=== PATIENT | female | born 1970 | race Caucasian/White ===

== ENCOUNTER → 2016-07-20 | Outpatient (CLI) | payer BC ==
[2016-07-20 15:30] LABS: URINE APPEARANCE CLEAR (CLEAR); URINE BILIRUBIN NEG (NEG); URINE COLOR YELLOW; URINE NITRITE NEG (NEG); URINE SPECIFIC GRAVITY 1.025 (1.000-1.030); UROBILINOGEN NEG (NEG); ZZUR CULT IF INDIC CLEAN CATCH NO
[2016-07-20 15:33] LABS: MANUAL MICROSCOPIC REQUIRED? NO; REVIEW REQ? NO
[2016-07-20 15:37] LABS: URINE TOTAL PROTEIN < 5.0 mg/dl (0-11.9)
== END | disposition home or self-care (01) ==
LOC: C.LAB1850 13:57
PROVIDERS: ATTEND Internal Medicine Nephrology
DX: I10 Essential (primary) hypertension (principal); Z90.5 Acquired absence of kidney

== ENCOUNTER → 2016-12-12 | Outpatient (CLI) | payer BC ==
[2016-12-12 13:04] LABS: ESTIMATED AVERAGE GLUCOSE 197 mg/dl; HA1C FLAG Normal (Normal)
[2016-12-12 13:25] LABS: CALCIUM 9.4 mg/dl (8.5-10.1)
[2016-12-12 13:26] LABS: BLOOD UREA NITROGEN 16 mg/dl (7-18); BUN/CREATININE RATIO 14.5 (10-20); CARBON DIOXIDE 27 mmol/L (21-32); CHLORIDE 102 mmol/L (98-107); CHOLESTEROL 132 mg/dl (0-200); GLUCOSE 137 mg/dl (70-99); SODIUM 137 mmol/L (136-145); TRIGLYCERIDES 94 mg/dl (0-150); VERY LOW DENSITY LIPOPROT CALC 19 mg/dl
[2016-12-12 13:36] LABS: CHOLESTEROL/HDL RATIO 3.2; HDL CHOLESTEROL 41 mg/dl; LDL CHOLESTEROL CALCULATED 72 mg/dl
== END | disposition home or self-care (01) ==
LOC: C.LABPBG 10:27
PROVIDERS: ATTEND Family Medicine
DX: E11.9 Type 2 diabetes mellitus without complications (principal); E03.9 Hypothyroidism, unspecified

== ENCOUNTER → 2017-04-18 | Outpatient (CLI) | payer BC ==
[2017-04-18 12:44] LABS: URINE APPEARANCE CLEAR (CLEAR); URINE BILIRUBIN NEG (NEG); URINE COLOR YELLOW; URINE NITRITE NEG (NEG); URINE PH 6.5 (4.5-7.5); URINE SPECIFIC GRAVITY 1.012 (1.000-1.030); UROBILINOGEN NEG (NEG); ZZUR CULT IF INDIC CLEAN CATCH NO
[2017-04-18 12:47] LABS: URINE TOTAL PROTEIN < 5.0 mg/dl (0-11.9)
[2017-04-18 12:52] LABS: MANUAL MICROSCOPIC REQUIRED? NO; REVIEW REQ? NO
[2017-04-18 12:54] LABS: BLOOD UREA NITROGEN 10 mg/dl (7-18); BUN/CREATININE RATIO 12.3 (10-20); CALCIUM 9.2 mg/dl (8.5-10.1); CARBON DIOXIDE 27 mmol/L (21-32); CHLORIDE 108 mmol/L (98-107); CREATININE 0.83 mg/dl (0.60-1.20); GLUCOSE 107 mg/dl (70-99); MAGNESIUM 2.2 mg/dl (1.8-2.4); PHOSPHORUS 3.1 mg/dl (2.5-4.9); SODIUM 141 mmol/L (136-145)
== END | disposition home or self-care (01) ==
LOC: C.LABPBG 10:10
PROVIDERS: ATTEND Internal Medicine Nephrology
DX: E55.9 Vitamin D deficiency, unspecified (principal); Z90.5 Acquired absence of kidney

== ENCOUNTER 2020-02-11 06:43 | Observation (INO) ==
--- NOTE | 2020-01-10 13:36 | PAT Medication Instructions ---
Medication Instructions Date of Service January 10, 2020 Home Medications Medication Instructions Recorded alprazolam 0.5 mg tablet 0.5 mg PO BID PRN #30 tab 09/24/19 cyclobenzaprine 5 mg tablet 5 mg PO TID PRN alprazolam 0.5 mg tablet 0.5 mg PO BID PRN Vitamin B12 Injection 1 dose UD acyclovir 400 mg PO UD PRN calcium carbonate [Calcium 600] 600 mg PO DAILY multivitamin 1 cap PO DAILY DO NOT take the morning of surgery cyclobenzaprine 5 mg tablet 5 mg PO TID PRN Vitamin B12 Injection 1 dose UD calcium carbonate [Calcium 600] 600 mg PO DAILY multivitamin 1 cap PO DAILY Take morning of surgery With a small sip of water, OTHERWISE NOTHING TO EAT OR DRINK AFTER MIDNIGHT: alprazolam 0.5 mg tablet 0.5 mg PO BID PRN (if needed) acyclovir 400 mg PO UD PRN (if needed) Take evening before surgery cyclobenzaprine 5 mg tablet 5 mg PO TID PRN (if needed) alprazolam 0.5 mg tablet 0.5 mg PO BID PRN (if needed) acyclovir 400 mg PO UD PRN (if needed) Other Notes If you have any questions please call us at [phone] or [phone] or [phone] or [phone]
--- NOTE | 2020-01-13 12:17 | Anesthesiology Consultation ---
Date of Service January 13, 2020 Assessment & Plan (1) Encounter for pre-operative examination: Per PAT assessment on 01/12: Travel screen negative. No known COVID-19 positive contacts. No current COVID-19 related symptoms. Patient scheduled for preop protocol COVID-19 testing 02/05 ([facility] [place] Awaiting results. - Check [facility] AM DOS Chart Review Chart Review: Acceptable Risk for Surgery (pending surgeon-ordered PCP clearance scheduled 01/15 (Dr. Archibald)) and Patient seen in Pre Admission Testing Teaching & Discussion Pre-Anesthesia Teaching/Discussion Notes: Instructed NPO after midnight before surgery,except medications with 15 cc of water. Medication instructions provided according to the PAT guidelines. History Surgery Operation Date: 02/11/20 13:40 Proposed Procedures p Left Total Knee Arthroplasty - Bruno Mesa DO Height/Weight Height: 5 ft 7 in Weight: 111.2 kg Allergies Allergy/AdvReac Type Severity Reaction Status Date / Time CHOLESTATIN Allergy Unknown per Uncoded 01/13/20 12:15 records, unknown reaction pine Allergy Unknown rash and Uncoded 01/13/20 12:15 congestion Medications Home Medications Medication Instructions Recorded Confirmed Last Taken cyclobenzaprine 5 mg tablet 5 mg PO TID PRN 01/22/19 01/09/20 Unknown alprazolam 0.5 mg tablet 0.5 mg PO BID PRN #30 tab 09/24/19 01/09/20 Unknown Vitamin B12 Injection 1 dose UD 01/09/20 01/09/20 Unknown acyclovir 400 mg PO UD PRN 01/09/20 01/09/20 Unknown calcium carbonate [Calcium 600] 600 mg PO DAILY 01/09/20 01/09/20 Unknown multivitamin 1 cap PO DAILY 01/09/20 01/09/20 Unknown Past Medical History Medical History Anxiety and depression Fibromyalgia History of diabetes mellitus diagnosed prior to gastric bypass, diet controlled since weight loss History of high blood pressure Obesity Osteoarthritis Solitary right kidney donated left kidney Exercise / Class Metabolic Activity II 4-5 Yardwork/Stairs/Walk up hill Past Family History Family History Sister Family history of diabetes mellitus Brother Family history of diabetes mellitus Sister Family history of diabetes mellitus Past Surgical History Surgical History History of 2 sections History of gastric bypass History of hysterectomy History of left nephrectomy History of placement of ear tubes History of right knee surgery History of surgery HYMENECTOMY S/P panniculectomy 04/26/19 Dr. Rickey Forde- Lilli abdominal panniculectomy Past Anesthesia History Other ("slow to wake") Sister- severe PONV Brother- "slow to wake" History of PONV No Hx of Motion Sickness and History of PONV (with previous c/s) Social History Smoking Status: Never smoker Do You Dip or Chew Tobacco: No Hx Alcohol Use: No Hx Substance Use: No substance use type: does not use Review of Systems Patient denies chest pain, shortness of breath, dyspnea on exertion, joint pain, reflux, cough, wheezing, palpitations. Physical Exam Vital Signs VITALS BP 135/85 P 78 TEMP 98.7 SP02 97%RA RESP 16 PHYSICAL Full neck and c-spine range of motion. Full TMJ range of motion. TMD 3 finger breaths Mallampati Score 1 Dentition: missing molars Lungs: clear throughout to auscultation Cardiac: regular rate and rhythm, no murmurs noted Spine: normal Carotid arteries: negative bruit Extremities: no edema Testing Laboratory Results 01/13/20 12:45 01/13/20 12:45 PT 10.1 Seconds (9.0-12.0) 01/13/20 12:45 INR 1.0 (0.9-1.1) 01/13/20 12:45 APTT 29.2 Seconds (21.0-31.0) 01/13/20 12:45 Hemoglobin A1c 6.1 % (4.5-5.6) H 01/13/20 12:45 Urine Color Yellow 01/13/20 12:45 Urine Appearance Clear (Clear) 01/13/20 12:45 Urine pH 7.5 (4.5-7.5) 01/13/20 12:45 Ur Specific [place] 1.016 (1.000-1.030) 01/13/20 12:45 Urine Protein Negative (Negative) 01/13/20 12:45 Urine Glucose (UA) Negative (Negative) 01/13/20 12:45 Urine Ketones Negative (Negative) 01/13/20 12:45 Urine Nitrite Negative (Negative) 01/13/20 12:45 Ur Leukocyte Esterase Negative (Negative) 01/13/20 12:45 Blood Type O Positive 01/13/20 12:45 Antibody Screen POSITIVE A 01/13/20 12:45 01/13/20 12:45 Urine Culture - Preliminary Urine,Clean Catch No growth - Less than 1,000 colonies/mL, Final report to follow. T&S with positive antibodies- per blood bank: aware and nothing further needed preoperatively* Electrocardiogram Date: 04/16/19 SR at 63bpm. Leftward axis. Chest X-Ray Date: 01/13/20 Findings: + NAD
--- NOTE | 2020-01-13 13:11 | XRay Report ---
XR chest Pre-admission PA/Lat CLINICAL HISTORY: Preoperative evaluation. COMPARISON STUDY: No previous studies for comparison. FINDINGS: Lung volumes are normal. Lungs are clear. There is no pneumothorax or pleural effusion. Car diac size is normal. Mediastinal contours are normal. There is no evidence for pulmonary edema. IMPRESSION: No acute cardiopulmonary findings. ACT 112: Negative or not required by law. Electronically signed by: Vernon Newton M.D. 01/13/2020 1:09 PM
[2020-01-13 13:59] LABS: Basophils # (auto) 0.01 K/uL (0-0.2); Basophils % (auto) 0.2 %; Hematocrit (blood only) 42.1 % (37-47); Hemoglobin 13.5 g/dL (12.0-16.0); Immature Granulocytes # (auto) 0.01 K/uL (0.00-0.02); Immature Granulocytes % (auto) 0.2 %; Lymphocytes # (auto) 1.42 K/uL (1.2-3.4); Lymphocytes % (auto) 31.8 %; Mean Corpuscular Hemoglobin 27.3 pg (25-34); Mean Corpuscular Hgb Conc 32.1 g/dL (32-36); Mean Corpuscular Volume 85.1 fL (80-100); Mean Platelet Volume 9.9 fL (7.4-10.4); Monocytes # (auto) 0.41 K/uL (0.11-0.59); Monocytes % (auto) 9.2 %; Neutrophils # (auto) 2.61 K/uL (1.4-6.5); Neutrophils % (auto) 58.6 %; Platelet Count 232 K/uL (130-400); RDW Standard Deviation 43.3 fL (36.4-46.3); Red Blood Count 4.95 M/uL (4.2-5.4); White Blood Count 4.46 K/uL (4.8-10.8)
[2020-01-13 14:08] LABS: Albumin Level 3.9 gm/dl (3.4-5.0); Calcium 9.1 mg/dl (8.5-10.1); Creatinine Clr Calc Pharmacy 89.2 ml/min; Est GFR (African American) 78.9; Est GFR (Non-African American) 68.1; Potassium 4.3 mmol/L (3.5-5.1)
[2020-01-13 14:12] LABS: Partial Thromboplastin Time 29.2 Seconds (21.0-31.0); Prothrombin Time 10.1 Seconds (9.0-12.0)
[2020-01-13 14:55] LABS: Appearance Urine Clear (Clear); Bilirubin Urine Negative (Negative); Blood Urine Negative (Negative); Color Urine Yellow; Glucose Urine UA Negative (Negative); Ketones Urine Negative (Negative); Leukocyte Esterase Urine Negative (Negative); Nitrite Urine Negative (Negative); Protein Urine Negative (Negative); Specific Gravity Urine 1.016 (1.000-1.030); Urobilinogen Urine Negative (Negative); pH Urine 7.5 (4.5-7.5)
[2020-01-14 05:37] LABS: Estimated Average Glucose 128 mg/dl; Hemoglobin A1C 6.1 % (4.5-5.6)
--- NOTE | 2020-01-15 10:53 | History & Physical Report ---
Date of Service January 15, 2020 date of surgery: 02-11-20 Procedure: Left Total knee replacement Assessment & Plan (1) Arthritis of knee, left: She presents with continued bilateral knee pain, left greater than right. 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 Risks and benefits of procedure discussed in detail today, patient would like to proceed with a block left total knee replacement at [facility] as scheduled. will obtain medical clearance prior to surgery as well as obtain PATs at [facility]. Will place on ASA 81mg po bid x 1 month post op, f/u 2 weeks post op for routine post-operative care and x-ray, sooner if having any problems. will make arrangements for HHPT at the time of discharge. At this point in time, has failed conservative measures and would like to proceed with surgical intervention. History of Present Illness Chief Complaint: left knee pain Primary Care Provider: Marcelle Archibald MD Ms Costello is a 49 year old female who complains of left knee pain, presents for pre-op evaluation prior to a left total knee replacement by dr Mesa at [facility] . She complains of pain, crepitus, decreased range of motion, instability and stiffness in her left knee. She states that the symptoms have been chronic and non-traumatic. She states that the symptoms occur constantly with intermittent worsening. Currently the patient states that the symptoms are moderate-severe. The pain is described as aching, sharp and throbbing. The symptoms occur continuously. The symptoms are aggravated by ascending stairs, daily activities, first steps while awake walking. Prior NSAIDs include IBU and Aleve. 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 Allergies Allergy/AdvReac Type Severity Reaction Status Date / Time CHOLESTATIN Allergy Unknown per Uncoded 01/13/20 12:15 records, unknown reaction pine Allergy Unknown rash and Uncoded 01/13/20 12:15 congestion Home Medications Home Medications Medication Instructions Recorded Confirmed Type cyclobenzaprine 5 mg tablet 5 mg PO TID PRN 01/22/19 01/09/20 History alprazolam 0.5 mg tablet 0.5 mg PO BID PRN #30 tab 09/24/19 01/09/20 Rx Vitamin B12 Injection 1 dose UD 01/09/20 01/09/20 History acyclovir 400 mg PO UD PRN 01/09/20 01/09/20 History calcium carbonate [Calcium 600] 600 mg PO DAILY 01/09/20 01/09/20 History multivitamin 1 cap PO DAILY 01/09/20 01/09/20 History Past Med/Surg History Medical History Anxiety and depression Fibromyalgia History of diabetes mellitus diagnosed prior to gastric bypass, diet controlled since weight loss History of high blood pressure Obesity Osteoarthritis Solitary right kidney donated left kidney Surgical History History of 2 sections History of gastric bypass History of hysterectomy History of left nephrectomy History of placement of ear tubes History of right knee surgery History of surgery HYMENECTOMY S/P panniculectomy 04/26/19 Dr. Rickey Reeder abdominal panniculectomy Family History Sister Family history of diabetes mellitus Brother Family history of diabetes mellitus Sister Family history of diabetes mellitus Social History Smoking Status: Never smoker Do You Dip or Chew Tobacco: No; Hx Alcohol Use: No Hx Substance Use: No Preferred Language: Kinyarwanda Communication Ability: Effective Emergency Services Professional Required: No Beliefs That Will Affect Care: None Current Living Situation: Spouse and Family Other Information That Helps Us Care for You: No Feels Safe at Home: Yes Review of Systems Review of Systems: All systems reviewed & are unremarkable except as noted in HPI & below Constitutional: no fever, no chills and no sweats Respiratory: no cough and no dyspnea Cardiovascular: no chest pain, no dyspnea and no orthopnea Gastrointestinal: no abdominal pain, no nausea and no vomiting Musculoskeletal: as per Subjective / HPI Physical Exam Physical Exam: HT: 5ft 7in WT: 111kg BP: 120/90 Constitutional: WD/WN, vitals as above no acute distress Respiratory: normal respiratory effort, lungs clear to auscultation no respiratory distress, no labored breathing and does not use accessory muscles Cardiovascular: RRR, no murmur, no edema Gastrointestinal (Abdomen): normal bowel sounds, soft, nontender, no hepatosplenomegaly Musculoskeletal: Knee: + knee abnormal to inspection (Left Knee- ), + effusion (+1 effusion), + limited ROM of knee (ROM 0/3/110), + knee ROM with crepitation, + joint line tenderness (medial joint line) and + Pollo's sign positive; no deformity, no skin erythema, no ecchymosis, no valgus laxity, no varus laxity, anterior drawer test negative, Kiara's sign negative and pivot shift test negative Results & Data Results & Data ([facility]) Laboratory Results Laboratory Results WBC 4.46 K/uL (4.8-10.8) L 01/13/20 12:45 RBC 4.95 M/uL (4.2-5.4) 01/13/20 12:45 Hgb 13.5 g/dL (12.0-16.0) 01/13/20 12:45 Hct 42.1 % (37-47) 01/13/20 12:45 MCV 85.1 fL (80-100) 01/13/20 12:45 MCH 27.3 pg (25-34) 01/13/20 12:45 MCHC 32.1 g/dL (32-36) 01/13/20 12:45 RDW Std Deviation 43.3 fL (36.4-46.3) 01/13/20 12:45 RDW Coeff of Gerson 14.0 % (11.5-14.5) 01/13/20 12:45 Plt Count 232 K/uL (130-400) 01/13/20 12:45 MPV 9.9 fL (7.4-10.4) 01/13/20 12:45 Immature Gran % (Auto) 0.2 % 01/13/20 12:45 Neut % (Auto) 58.6 % 01/13/20 12:45 Lymph % (Auto) 31.8 % 01/13/20 12:45 Mayes % (Auto) 9.2 % 01/13/20 12:45 Eos % (Auto) 0.0 % 01/13/20 12:45 Baso % (Auto) 0.2 % 01/13/20 12:45 Neut # (Auto) 2.61 K/uL (1.4-6.5) 01/13/20 12:45 Lymph # (Auto) 1.42 K/uL (1.2-3.4) 01/13/20 12:45 Mayes # (Auto) 0.41 K/uL (0.11-0.59) 01/13/20 12:45 Eos # (Auto) 0.00 K/uL (0-0.5) 01/13/20 12:45 Baso # (Auto) 0.01 K/uL (0-0.2) 01/13/20 12:45 Immature Gran # (Auto) 0.01 K/uL (0.00-0.02) 01/13/20 12:45 PT 10.1 Seconds (9.0-12.0) 01/13/20 12:45 INR 1.0 (0.9-1.1) 01/13/20 12:45 APTT 29.2 Seconds (21.0-31.0) 01/13/20 12:45 PTT Ratio 1.0 01/13/20 12:45 Sodium 140 mmol/L (136-145) 01/13/20 12:45 Potassium 4.3 mmol/L (3.5-5.1) 01/13/20 12:45 Chloride 108 mmol/L (98-107) H 01/13/20 12:45 Carbon Dioxide 26 mmol/L (21-32) 01/13/20 12:45 Anion Gap 6.0 (3-11) 01/13/20 12:45 BUN 14 mg/dl (7-18) 01/13/20 12:45 Creatinine 0.97 mg/dl (0.6-1.2) 01/13/20 12:45 Est Cr Clr Drug Dosing 89.2 ml/min 01/13/20 12:45 Est GFR ( Amer) 78.9 01/13/20 12:45 Est GFR (Non-Af Amer) 68.1 01/13/20 12:45 BUN/Creatinine Ratio 14.0 (10-20) 01/13/20 12:45 Glucose 87 mg/dl (70-99) 01/13/20 12:45 Estimat Average Glucose 128 mg/dl 01/13/20 12:45 Hemoglobin A1c 6.1 % (4.5-5.6) H 01/13/20 12:45 Calcium 9.1 mg/dl (8.5-10.1) 01/13/20 12:45 Albumin 3.9 gm/dl (3.4-5.0) 01/13/20 12:45 Urine Color Yellow 01/13/20 12:45 Urine Appearance Clear (Clear) 01/13/20 12:45 Urine pH 7.5 (4.5-7.5) 01/13/20 12:45 Ur Specific [place] 1.016 (1.000-1.030) 01/13/20 12:45 Urine Protein Negative (Negative) 01/13/20 12:45 Urine Glucose (UA) Negative (Negative) 01/13/20 12:45 Urine Ketones Negative (Negative) 01/13/20 12:45 Urine Blood Negative (Negative) 01/13/20 12:45 Urine Nitrite Negative (Negative) 01/13/20 12:45 Urine Bilirubin Negative (Negative) 01/13/20 12:45 Urine Urobilinogen Negative (Negative) 01/13/20 12:45 Ur Leukocyte Esterase Negative (Negative) 01/13/20 12:45 Blood Type O Positive 01/13/20 12:45 Antibody Screen POSITIVE A 01/13/20 12:45 Antibody Identification Anti-c 01/13/20 12:45 Antibody ID Comment 01/13/20 12:45 Antigen Identification c Antigen - NEGATIVE 01/13/20 12:45 Diagnostic Findings Left Knee X-ray: left knee series confirm advanced degenerative changes to the left knee, greatest medial compartments and patellofemoral joint, showing joint space narrowing, osteophyte formation and subchondral sclerosis. no acute bony pathology noted.
[~2020-02-11 06:43] MED LIST: ACETAMINOPHEN 500 MG TAB PO SCH; BUPIVACAINE 0.5 % 5 MG/1 ML PF 10ML VIAL ONE; CEFAZOLIN 2000MG 2,000 MG/15 ML SYR IV SCH; CeleBREX 200 MG CAP PO SCH; FAMOTIDINE 20 MG TAB PO SCH; GABAPENTIN 900 MG DOSE PO SCH; LR 500ML BOLUS, THEN 15ML/HR IV SCH; METOCLOPRAMIDE HCL 10 MG TABLET PO SCH; ROPIVACAINE 0.5% HCL/PF 150 MG, BUPIVACAINE 0.5% MPF 30 ML, EPINEPHrine 30MG/30ML (OR U... INSTIL SCH; TRANEXAMIC ACID 1,000 MG **IV Intra-op IV SCH; TRANEXAMIC ACID 1,000 MG **IV Pre-op IV SCH; dexAMETHasone 4 MG TAB PO SCH
[2020-02-11] MEDS ORDERED: BACITRACIN INJ 50,000 UNIT VIAL ONE (06:58)
[2020-02-11] MEDS ORDERED: ORTHO JOINT ANESTHETIC ONE (06:58)
--- NOTE | 2020-02-11 07:23 | History & Physical Bridge Note ---
Date of Service February 11, 2020 History & Physical Bridge Note I have examined the patient, reviewed the History & Physical and in the interval since the performance of the History & Physical I have noted the following changes of clinical significance: no changes noted
[2020-02-11] MEDS ORDERED: fentaNYL citrate 100 MCG/2 ML VIAL ONE (07:26)
[2020-02-11] MEDS ORDERED: MIDAZOLAM HCL 1 MG/ML 2ML VIAL ONE ×2 (07:26→08:43)
[2020-02-11] MEDS ORDERED: ATROPINE SULFATE 0.1 MG/ML 10ML SYR IV PRN (08:06)
[2020-02-11] MEDS ORDERED: fentaNYL citrate 100 MCG/2 ML VIAL IV PRN (08:06)
[2020-02-11] MEDS ORDERED: ePHEDrine sulfate 50 MG/ML AMP IV PRN (08:06)
[2020-02-11] MEDS ORDERED: ONDANSETRON INJ 2 MG/ML 2 ML VIAL IV PRN ×2 (08:06→12:05)
[2020-02-11] MEDS ORDERED: PROPOFOL IV EMULSION 10 MG/ML 20 ML VIAL IV ONE ×2 (08:46→10:05)
[2020-02-11] MEDS ORDERED: ONDANSETRON INJ 2 MG/ML 2 ML VIAL ONE (08:46)
[2020-02-11] MEDS ORDERED: LIDOCAINE HCL 2% 2 ML VIAL/AMP(20MG/ML) INFIL ONE (08:46)
--- NOTE | 2020-02-11 09:32 | Operative Report ---
Post Operative Report Pre & Post Diagnosis Operation Date: 02/11/20 08:35 Pre-Op Diagnosis: Unilateral Primary Osteoarthritis, Left Knee Post-Op Diagnosis: Unilateral Primary Osteoarthritis, Left Knee I identified the patient and participated in the time-out.: Yes Procedure Operation Date: 02/11/20 08:35 Actual Procedures p Left Total Knee Arthroplasty(Left) utilizing [employer] journey 2 patient matched total knee arthroplasty size 5 femur/4 tibia 11 polyethylene 32 oval patella- Bruno Mesa DO Surgeon Bruno Mesa DO Supervisor [employer] Edison ESCUDERO Estimated Blood Loss 5 Findings Consistent with Post-Op Diagnosis Patient presents with severe end-stage tricompartmental degenerative joint disease subchondral sclerosis marginal osteophytes subchondral cystic changes varus alignment with a 10 degree flexion contracture and a moderate to large effusion Specimens Bone and cartilage Drains Medium bore Hemovac Anesthesia Type MAC Spinal Regional Complications none Disposition Accompanied Patient To Recovery: No Disposition: Recovery Room Indications Patient presents with severe end-stage tricompartmental degenerative joint disease by her left knee she been no response to conservative management the above intraoperative findings no time surgery patient fell attempted conservative management clinic physical therapy anti-inflammatories relative rest activity modification corticosteroid injection Visco supplementation Description of Procedure After proper prepping and draping of the left lower extremity anterior midline incision was made over the region of the extensor extensor mechanism after meticulous hemostasis was obtained and maintained in subcutaneous tissues a medial parapatellar incision was made The patella was subluxed lateralward the medial lateral gutter were cleaned from any hypertrophic synovitis and scar tissue of the distal femoral block was placed and the distal femoral osteotomy cut was made subsequently the chamfers anterior and posterior osteotomy cuts were made utilizing the 4-in-1 block the tibia was subsequently subluxed ant eriorward medial and ateral meniscal remnants were excised in their entirety remnants of the anterior and posterior cruciate ligaments were excised in their entirety excellent exposure of the proximal tibia was obtained the tibial osteotomy guide was placed on the proximal tibial osteotomy cut was made once again the knee was irrigated with copious amounts of sterile saline solution the patella was subsequently everted lateralward thickened scar tissue around the patella was removed the patella was subsequently cut utilizing a freehand technique and was drilled prepared for final preparation and placement of patella socially flexion-extension gaps were checked and the equal and symmetric trials were placed to the appropriate femoral and tibial trials with poly-spacer being placed for equal flexion and extension gaps and full range of motion including extension to 0 and flexion to 140 the trial components after having been taken to recovery range of motion was subsequently removed meticulous hemostasis was obtained and maintained subsequently a knee block injection of joint cocktail including ropivacaine 0.5% 150 mg. Bupivacaine 0.5% epinephrine 1-200,030 mL's toradol 30 mg dexamethasone 4 mg ketamine 10 mg clonidine 100 micrograms normal saline solution 30 mg was infiltrated into the soft tissues of the posterior knee medial lateral gutters and periosteal synovium special at tention was paid to protect neurovascular structures at all times subsequently trial components having been removed the knee was irrigated with sterile saline solution. debris was removed the proximal tibia was subsequently prepared and was made ready for the placement of the tibial component tibial component was also cemented and tamped into position the femoral component was subsequently placed and cemented in the position the patellar component was subsequently cemented in position because hemostasis once again obtained and maintained wound having been thoroughly irrigated with debridement and debridement lavage was performed as well as a medial parapatellar incision closed with #1 Vicryl in interrupted fashion subcutaneous was closed with #2 Vicryl skin was closed with skin clips. PA-C was necessary for prepping and drapping as well as wound closure of deep fascia Sub cutaneous tissue and skin and was necessary for the case. A sterile compressive dressing was placed patient was taken to recovery in stable condition of report dictated by Moshe I attest to the content of the Intraoperative Record and any orders documented therein. Any exceptions are noted below. I attest to the content of the Intraoperative Record and any orders documented therein. Any exceptions are noted below.
--- NOTE | 2020-02-11 10:43 | XRay Report ---
XR knee LT 1 or 2V routine CLINICAL HISTORY: Postoperative evaluation. COMPARISON: None FINDINGS: Alignment of the total left knee arthroplasty is anatomic. There is no fracture or unexpec benton radiopaque foreign body. Surgical drains are in place. IMPRESSION: Expected findings following total left knee arthroplasty. ACT 112: Negative or not required by law. Electronically signed by: Vernon Newton M.D. 02/11/2020 10:42 AM
--- NOTE | 2020-02-11 10:53 | Anesthesiology Progress Note ---
Date of Service February 11, 2020 Anesthesia Post Procedure Vital Signs Vital Signs: Temp Pulse Pulse Resp BP Pulse Ox 02/11/20 10:45 85 16 155/87 H 96 02/11/20 10:35 88 14 152/91 H 98 02/11/20 10:25 90 16 138/83 94 02/11/20 10:18 98.2 F 96 H 16 137/77 96 02/11/20 08:13 71 18 158/96 H 98 02/11/20 07:33 98.6 F 71 20 137/89 97 Transfer of Care Handoff Completed per policy Notes Mental Status: alert / awake / arousable and participated in evaluation Patient Amnestic to Procedure: Yes Nausea / Vomiting: adequately controlled Pain: adequately controlled Airway Patency, RR, SpO2: stable & adequate BP & HR: stable & adequate Hydration State: stable & adequate Neuraxial Anesthesia: was administered and sensory block is resolving Anesthetic Complications: no major complications apparent and Pt Satisfied with anesthetic care
[2020-02-11] MEDS ORDERED: bisacodyL 10 MG SUPP PR PRN (12:05)
[2020-02-11] MEDS ORDERED: HYDROmorphone INJ 0.5 MG/0.5 ML SYR IV PRN (12:05)
[2020-02-11] MEDS ORDERED: ALPRAZolam 0.5 MG TABLET PO PRN (12:05)
[2020-02-11] MEDS ORDERED: NALOXONE HCL 0.4 MG/1 ML VIAL/CARP IV PRN (12:05)
[2020-02-11] MEDS ORDERED: MAGNESIUM HYDROXIDE SUSP 30 ML UDC PO PRN (12:05)
[2020-02-11] MEDS: ACETAMINOPHEN 500 MG TAB PO SCH ×2 (13:12→21:42)
[2020-02-11] MEDS: SODIUM CHLORIDE 0.9% 1000ML 1,000 ML IV SCH ×2 (13:12→21:41)
[2020-02-11] MEDS: OXYCODONE HCL IR 5 MG TAB (IMMEDIATE RELEASE) PO PRN ×2 (15:45→19:46)
[2020-02-11] MEDS: CEFAZOLIN 2000MG 2,000 MG/15 ML SYR IV SCH ×2 (15:51→23:42)
[2020-02-11] MEDS: FERROUS GLUCONATE 324 MG TAB PO SCH (18:45)
[2020-02-11] MEDS: DOCUSATE SODIUM 100 MG CAP PO SCH (21:41)
[2020-02-11] MEDS: ASPIRIN 81 MG ECTAB PO SCH (21:41)
[2020-02-11] MEDS: SENNA 8.6 MG TAB PO SCH (21:41)
[2020-02-12] MEDS: OXYCODONE HCL IR 5 MG TAB (IMMEDIATE RELEASE) PO PRN ×4 (00:02→19:40)
[2020-02-12 05:54] LABS: Hematocrit (blood only) 34.8 % (37-47); Hemoglobin 11.5 g/dL (12.0-16.0); Mean Corpuscular Hemoglobin 27.6 pg (25-34); Mean Corpuscular Volume 83.5 fL (80-100); Mean Platelet Volume 9.8 fL (7.4-10.4); Platelet Count 179 K/uL (130-400); RDW Coefficient of Variation 13.6 % (11.5-14.5); Red Blood Count 4.17 M/uL (4.2-5.4); White Blood Count 7.79 K/uL (4.8-10.8)
[2020-02-12 06:19] LABS: BUN Creatinine Ratio 12.3 (10-20); Calcium 7.9 mg/dl (8.5-10.1); Creatinine Clr Calc Pharmacy 105.8 ml/min; Est GFR (African American) 96.7; Est GFR (Non-African American) 83.4; Potassium 4.2 mmol/L (3.5-5.1)
[2020-02-12] MEDS: ACETAMINOPHEN 500 MG TAB PO SCH ×3 (06:25→22:17)
[2020-02-12] MEDS: ASPIRIN 81 MG ECTAB PO SCH ×2 (08:27→20:33)
[2020-02-12] MEDS: DOCUSATE SODIUM 100 MG CAP PO SCH ×2 (08:27→20:33)
[2020-02-12] MEDS: FERROUS GLUCONATE 324 MG TAB PO SCH ×2 (08:27→17:22)
[2020-02-12] MEDS: MULTIVITAMIN TAB PO SCH (08:27)
--- NOTE | 2020-02-12 12:56 | Orthopedic Progress Note ---
Date of Service February 12, 2020 Assessment & Plan (1) History of total left knee replacement: POD #1 s/p Left TKA pt/ot dvt proph with LILO/SCD/ASA plan for d/c home with HHPT will keep until tomorrow, episodes of N/V and increased pain. Admission and Anticipated Discharge Date Admission Date: February 11, 2020 Subjective POD #1 s/p Left TKA had some nausea with PT as well as 1 episode of vomiting Review of Systems Constitutional: no fever, no chills and no sweats Respiratory: no cough and no dyspnea Cardiovascular: no chest pain and no dyspnea Gastrointestinal: no abdominal pain Physical Exam Physical Exam: Vital Signs Temp 36.9 C 02/12/20 07:19 Pulse 75 02/12/20 07:19 Resp 16 02/12/20 07:19 BP 149/73 H 02/12/20 07:19 Pulse Ox 97 02/12/20 07:19 Intake & Output 02/11/20 02/12/20 02/12/20 18:59 06:59 18:59 Intake Total 1750 / 4681.666 2931.666 / 4681.66 6 Output Total 1305 / 3255 1950 / 3255 Balance 445 / 1426.666 981.666 / 1426.666 Weight 110 kg Intake: IV 700 / 2181.666 1481.666 / 2181.66 6 Lr 1,000 ml @ 15 mls/hr IV . 500 / 500 Q24H [facility] Rx#:[id number] Nss 1000ML 1,0 00 ml @ 100 mls/ 1481.666 / 1481.66 6 hr IV .Q10H [facility] Rx#:[id number] TRANEXAMIC ACI D / 0.7% NACL 1, 200 / 200 000 mg In 100 ml @ 600 mls/hr IV TODAY@0600 [facility] Rx#:[id number] IV Perioperative 800 / 800 Oral 250 / 1700 1450 / 1700 Output: Urine 1150 / 2750 1600 / 2750 Estimated Blood Loss 5 / 5 Drain Output 150 / 500 350 / 500 Left Knee 150 / 500 350 / 500 Other: # Unmeasured Voi ds 1 Constitutional: WD/WN, vitals as above no acute distress Musculoskeletal: Left Leg: NVDI, calf SNT, negative leyla sign. DP palpable, able to wiggle toes/ankle movement without difficulty. dressing clean dry and intact. Results & Data ([facility]) Vital Signs (Past 12 Hours) Vital Signs Temp Pulse Resp BP Pulse Ox 02/12/20 07:19 36.9 C 75 16 149/73 H 97 02/12/20 03:17 36.4 C L 72 16 138/83 96 Laboratory Results Laboratory Results WBC 7.79 K/uL (4.8-10.8) 02/12/20 05:21 RBC 4.17 M/uL (4.2-5.4) L 02/12/20 05:21 Hgb 11.5 g/dL (12.0-16.0) L 02/12/20 05:21 Hct 34.8 % (37-47) L 02/12/20 05:21 MCV 83.5 fL (80-100) 02/12/20 05:21 MCH 27.6 pg (25-34) 02/12/20 05:21 MCHC 33.0 g/dL (32-36) 02/12/20 05:21 RDW Std Deviation 41.0 fL (36.4-46.3) 02/12/20 05:21 RDW Coeff of Gerson 13.6 % (11.5-14.5) 02/12/20 05:21 Plt Count 179 K/uL (130-400) 02/12/20 05:21 MPV 9.8 fL (7.4-10.4) 02/12/20 05:21 Immature Gran % (Auto) 0.2 % 01/13/20 12:45 Neut % (Auto) 58.6 % 01/13/20 12:45 Lymph % (Auto) 31.8 % 01/13/20 12:45 [place] % (Auto) 9.2 % 01/13/20 12:45 Eos % (Auto) 0.0 % 01/13/20 12:45 Baso % (Auto) 0.2 % 01/13/20 12:45 Neut # (Auto) 2.61 K/uL (1.4-6.5) 01/13/20 12:45 Lymph # (Auto) 1.42 K/uL (1.2-3.4) 01/13/20 12:45 [place] # (Auto) 0.41 K/uL (0.11-0.59) 01/13/20 12:45 Eos # (Auto) 0.00 K/uL (0-0.5) 01/13/20 12:45 Baso # (Auto) 0.01 K/uL (0-0.2) 01/13/20 12:45 Immature Gran # (Auto) 0.01 K/uL (0.00-0.02) 01/13/20 12:45 PT 10.1 Seconds (9.0-12.0) 01/13/20 12:45 INR 1.0 (0.9-1.1) 01/13/20 12:45 APTT 29.2 Seconds (21.0-31.0) 01/13/20 12:45 PTT Ratio 1.0 01/13/20 12:45 Sodium 141 mmol/L (136-145) 02/12/20 05:21 Potassium 4.2 mmol/L (3.5-5.1) 02/12/20 05:21 Chloride 112 mmol/L (98-107) H 02/12/20 05:21 Carbon Dioxide 25 mmol/L (21-32) 02/12/20 05:21 Anion Gap 4.0 (3-11) 02/12/20 05:21 BUN 10 mg/dl (7-18) 02/12/20 05:21 Creatinine 0.82 mg/dl (0.6-1.2) 02/12/20 05:21 Est Cr Clr Drug Dosing 105.8 ml/min 02/12/20 05:21 Est GFR ( Amer) 96.7 02/12/20 05:21 Est GFR (Non-Af Amer) 83.4 02/12/20 05:21 BUN/Creatinine Ratio 12.3 (10-20) 02/12/20 05:21 Glucose 107 mg/dl (70-99) H 02/12/20 05:21 POC Glucose 99 mg/dl (70-99) 02/11/20 07:15 Estimat Average Glucose 128 mg/dl 01/13/20 12:45 Hemoglobin A1c 6.1 % (4.5-5.6) H 01/13/20 12:45 Calcium 7.9 mg/dl (8.5-10.1) L 02/12/20 05:21 Albumin 3.9 gm/dl (3.4-5.0) 01/13/20 12:45 Urine Color Yellow 01/13/20 12:45 Urine Appearance Clear (Clear) 01/13/20 12:45 Urine pH 7.5 (4.5-7.5) 01/13/20 12:45 Ur Specific [place] 1.016 (1.000-1.030) 01/13/20 12:45 Urine Protein Negative (Negative) 01/13/20 12:45 Urine Glucose (UA) Negative (Negative) 01/13/20 12:45 Urine Ketones Negative (Negative) 01/13/20 12:45 Urine Blood Negative (Negative) 01/13/20 12:45 Urine Nitrite Negative (Negative) 01/13/20 12:45 Urine Bilirubin Negative (Negative) 01/13/20 12:45 Urine Urobilinogen Negative (Negative) 01/13/20 12:45 Ur Leukocyte Esterase Negative (Negative) 01/13/20 12:45 Blood Type O Positive 02/11/20 06:57 Antibody Screen POSITIVE A 02/11/20 06:57 Antibody Identification Anti-c 02/11/20 06:57 Antibody ID Comment 02/11/20 06:57 Antigen Identification c Antigen - NEGATIVE 01/13/20 12:45 Crossmatch See Detail 02/11/20 06:57
[2020-02-12] MEDS: SENNA 8.6 MG TAB PO SCH (20:33)
[2020-02-13] MEDS: OXYCODONE HCL IR 5 MG TAB (IMMEDIATE RELEASE) PO PRN ×3 (03:59→10:41)
[2020-02-13] MEDS: ACETAMINOPHEN 500 MG TAB PO SCH ×2 (06:05→13:16)
--- NOTE | 2020-02-13 07:52 | Orthopedic Progress Note ---
Date of Service February 13, 2020 Assessment & Plan (1) History of total left knee replacement: POD #2 s/p Left TKA pt/ot dvt proph with LILO/SCD/ASA plan for d/c home with OPPT @ [place]. Admission and Anticipated Discharge Date Admission Date: February 11, 2020 Subjective POD #2 s/p Left TKA episodes of N/V resolved denies CP/SOB denies Fever/Chills Review of Systems Constitutional: no fever, no chills and no sweats Respiratory: no cough and no dyspnea Cardiovascular: no chest pain and no dyspnea Gastrointestinal: no abdominal pain, no nausea and no vomiting Physical Exam Physical Exam: Vital Signs Temp 37.3 C 02/12/20 23:41 Pulse 75 02/12/20 23:41 Resp 14 02/12/20 23:41 BP 129/78 02/12/20 23:41 Pulse Ox 95 02/12/20 23:41 Intake & Output 02/12/20 02/13/20 02/13/20 18:59 06:59 18:59 Intake Total 75 / 625 550 / 625 Output Total 100 / 200 100 / 200 Balance -25 / 425 450 / 425 Intake: Oral 75 / 625 550 / 625 Output: Drain Output 100 / 200 100 / 200 Left Knee 100 / 200 100 / 200 Other: Other Intake Melva rce sip # Unmeasured Voi ds 3 Constitutional: WD/WN, vitals as above no acute distress Musculoskeletal: left lower extremity: NVDI, calf SNT, negative leyla sign. DP palpable, able to wiggle toes/ankle movement without difficulty. expected post- operative bruising noted. Results & Data ([facility]) Vital Signs (Past 12 Hours) Vital Signs Temp Pulse Resp BP Pulse Ox 02/12/20 23:41 37.3 C 75 14 129/78 95 Laboratory Results Laboratory Results WBC 7.79 K/uL (4.8-10.8) 02/12/20 05:21 RBC 4.17 M/uL (4.2-5.4) L 02/12/20 05:21 Hgb 11.5 g/dL (12.0-16.0) L 02/12/20 05:21 Hct 34.8 % (37-47) L 02/12/20 05:21 MCV 83.5 fL (80-100) 02/12/20 05:21 MCH 27.6 pg (25-34) 02/12/20 05:21 MCHC 33.0 g/dL (32-36) 02/12/20 05:21 RDW Std Deviation 41.0 fL (36.4-46.3) 02/12/20 05:21 RDW Coeff of Gerson 13.6 % (11.5-14.5) 02/12/20 05:21 Plt Count 179 K/uL (130-400) 02/12/20 05:21 MPV 9.8 fL (7.4-10.4) 02/12/20 05:21 Immature Gran % (Auto) 0.2 % 01/13/20 12:45 Neut % (Auto) 58.6 % 01/13/20 12:45 Lymph % (Auto) 31.8 % 01/13/20 12:45 [place] % (Auto) 9.2 % 01/13/20 12:45 Eos % (Auto) 0.0 % 01/13/20 12:45 Baso % (Auto) 0.2 % 01/13/20 12:45 Neut # (Auto) 2.61 K/uL (1.4-6.5) 01/13/20 12:45 Lymph # (Auto) 1.42 K/uL (1.2-3.4) 01/13/20 12:45 [place] # (Auto) 0.41 K/uL (0.11-0.59) 01/13/20 12:45 Eos # (Auto) 0.00 K/uL (0-0.5) 01/13/20 12:45 Baso # (Auto) 0.01 K/uL (0-0.2) 01/13/20 12:45 Immature Gran # (Auto) 0.01 K/uL (0.00-0.02) 01/13/20 12:45 PT 10.1 Seconds (9.0-12.0) 01/13/20 12:45 INR 1.0 (0.9-1.1) 01/13/20 12:45 APTT 29.2 Seconds (21.0-31.0) 01/13/20 12:45 PTT Ratio 1.0 01/13/20 12:45 Sodium 141 mmol/L (136-145) 02/12/20 05:21 Potassium 4.2 mmol/L (3.5-5.1) 02/12/20 05:21 Chloride 112 mmol/L (98-107) H 02/12/20 05:21 Carbon Dioxide 25 mmol/L (21-32) 02/12/20 05:21 Anion Gap 4.0 (3-11) 02/12/20 05:21 BUN 10 mg/dl (7-18) 02/12/20 05:21 Creatinine 0.82 mg/dl (0.6-1.2) 02/12/20 05:21 Est Cr Clr Drug Dosing 105.8 ml/min 02/12/20 05:21 Est GFR ( Amer) 96.7 02/12/20 05:21 Est GFR (Non-Af Amer) 83.4 02/12/20 05:21 BUN/Creatinine Ratio 12.3 (10-20) 02/12/20 05:21 Glucose 107 mg/dl (70-99) H 02/12/20 05:21 POC Glucose 99 mg/dl (70-99) 02/11/20 07:15 Estimat Average Glucose 128 mg/dl 01/13/20 12:45 Hemoglobin A1c 6.1 % (4.5-5.6) H 01/13/20 12:45 Calcium 7.9 mg/dl (8.5-10.1) L 02/12/20 05:21 Albumin 3.9 gm/dl (3.4-5.0) 01/13/20 12:45 Urine Color Yellow 01/13/20 12:45 Urine Appearance Clear (Clear) 01/13/20 12:45 Urine pH 7.5 (4.5-7.5) 01/13/20 12:45 Ur Specific [place] 1.016 (1.000-1.030) 01/13/20 12:45 Urine Protein Negative (Negative) 01/13/20 12:45 Urine Glucose (UA) Negative (Negative) 01/13/20 12:45 Urine Ketones Negative (Negative) 01/13/20 12:45 Urine Blood Negative (Negative) 01/13/20 12:45 Urine Nitrite Negative (Negative) 01/13/20 12:45 Urine Bilirubin Negative (Negative) 01/13/20 12:45 Urine Urobilinogen Negative (Negative) 01/13/20 12:45 Ur Leukocyte Esterase Negative (Negative) 01/13/20 12:45 Blood Type O Positive 02/11/20 06:57 Antibody Screen POSITIVE A 02/11/20 06:57 Antibody Identification Anti-c 02/11/20 06:57 Antibody ID Comment 02/11/20 06:57 Antigen Identification c Antigen - NEGATIVE 01/13/20 12:45 Crossmatch See Detail 02/11/20 06:57
[2020-02-13] MEDS: FERROUS GLUCONATE 324 MG TAB PO SCH (08:32)
[2020-02-13] MEDS: MULTIVITAMIN TAB PO SCH (08:32)
[2020-02-13] MEDS: ASPIRIN 81 MG ECTAB PO SCH (08:32)
[2020-02-13] MEDS: DOCUSATE SODIUM 100 MG CAP PO SCH (08:32)
--- NOTE | 2020-02-15 15:54 | Discharge Summary ---
Date of Service February 15, 2020 Admission HPI Per Admitting Provider Ms Costello is a 49 year old female who complains of left knee pain, presents for pre-op evaluation prior to a left total knee replacement by dr Mesa at [facility]. She complains of pain, crepitus, decreased range of motion, instability and stiffness in her left knee. She states that the symptoms have been chronic and non-traumatic. She states that the symptoms occur constantly with intermittent worsening. Currently the patient states that the symptoms are moderate-severe. The pain is described as aching, sharp and throbbing. The symptoms occur continuously. The symptoms are aggravated by ascending stairs, daily activities, first steps while awake walking. Prior NSAIDs include IBU and Aleve. She has been treated with previous cortisone injections in the past without much relief, has done clinical trials as well as uses an hydrometeorologist brace. Admission Exam Per Admitting Provider Physical Exam: HT: 5ft 7in WT: 111kg BP: 120/90 Constitutional: WD/WN, vitals as above no acute distress Respiratory: normal respiratory effort, lungs clear to auscultation no respiratory distress, no labored breathing and does not use accessory muscles Cardiovascular: RRR, no murmur, no edema Gastrointestinal (Abdomen): normal bowel sounds, soft, nontender, no hepatosplenomegaly Musculoskeletal: Knee: + knee abnormal to inspection (Left Knee- ), + effusion (+1 effusion), + limited ROM of knee (ROM 0/3/110), + knee ROM with crepitation, + joint line tenderness (medial joint line) and + Pollo's sign positive; no deformity, no skin erythema, no ecchymosis, no valgus laxity, no varus laxity, anterior drawer test negative, Kiara's sign negative and pivot shift test negative Principal Diagnosis Left Knee Djd Discharge Data Allergies Allergy/AdvReac Type Severity Reaction Status Date / Time CHOLESTATIN Allergy Unknown per Uncoded 01/16/20 08:18 records, unknown reaction pine Allergy Unknown rash and Uncoded 01/16/20 08:18 congestion Consultations 02/11/20 12:05 Consult Case Management - Discharge Planning Routine Procedures Performed Operation Date: 02/11/20 08:35 Actual Procedures p Left Total Knee Arthroplasty(Left) - Bruno Mesa DO Ordered Studies 02/11/20 05:00 US - OR guided needle placemen Routine Hospital Course (1) Arthritis of knee, left: Assessment & Plan (1) History of total left knee replacement: POD #2 s/p Left TKA pt/ot dvt proph with LILO/SCD/ASA plan for d/c home with OPPT @ [place]. Admission and Anticipated Discharge Date Admission Date: February 11, 2020 Subjective POD #2 s/p Left TKA episodes of N/V resolved denies CP/SOB denies Fever/Chills Review of Systems Constitutional: no fever, no chills and no sweats Respiratory: no cough and no dyspnea Cardiovascular: no chest pain and no dyspnea Gastrointestinal: no abdominal pain, no nausea and no vomiting Physical Exam Physical Exam: Vital Signs Temp 37.3 C 02/12/20 23:41 Pulse 75 02/12/20 23:41 Resp 14 02/12/20 23:41 BP 129/78 02/12/20 23:41 Pulse Ox 95 02/12/20 23:41 Intake & Output 02/12/20 02/13/20 02/13/20 18:59 06:59 18:59 Intake Total 75 / 625 550 / 625 Output Total 100 / 200 100 / 200 Balance -25 / 425 450 / 425 Intake: Oral 75 / 625 550 / 625 Output: Drain Output 100 / 200 100 / 200 Left Knee 100 / 200 100 / 200 Other: Other Intake Melva rce sip # Unmeasured Voi ds 3 Constitutional: WD/WN, vitals as above no acute distress Musculoskeletal: left lower extremity: NVDI, calf SNT, negative leyla sign. DP palpable, able to wiggle toes/ankle movement without difficulty. expected post-operative bruising noted. Results & Data ([facility]) Vital Signs (Past 12 Hours) Vital Signs Temp Pulse Resp BP Pulse Ox 02/12/20 23:41 37.3 C 75 14 129/78 95 Laboratory Results Laboratory Results WBC 7.79 K/uL (4.8-10.8) 02/12/20 05:21 RBC 4.17 M/uL (4.2-5.4) L 02/12/20 05:21 Hgb 11.5 g/dL (12.0-16.0) L 02/12/20 05:21 Total Time Total Time Spent Total Time Spent (In Minutes): 5 Discharge Plan Discharge Items Patient Disposition: Home - Self-Care Reason For Visit: Unilateral Primary Osteoarthritis, Left Knee Discharge Diagnosis: Left Knee Osteoarthritis Activity: Per Instructions section Weightbearing: Left weightbearing Weightbearing Comment: as tolerated with walker Non-emergency contact: Surgeon Call non-emergency contact if: your pain is not controlled, your temperature is above 101.5, your wound has increased redness and your wound has increased drainage Follow-up/Referrals: Marcelle Archibald MD [Primary Care Provider] - Diet: Regular Addtl Attending Provider Instructions: Follow up with your Primary Care Physician in one week if your blood pressure remains elevated. ACTIVITY RECOMMENDATIONS: SELF CARE INSTRUCTIONS AFTER TOTAL KNEE REPLACEMENT A. You may need to continue a physical therapy program after discharge from the hospital. There are several options available to you. Your doctor will assist you in selecting the best one for you. 1. An out-patient facility 2 to 3 times a week for therapy or home therapy. 2. Continue working on all exercises taught to you in the hospital. Your goals should be to increase bending of your knee to 90 degrees and beyond and to fully straighten your knee. B. You may progress at your own pace from walking with a walker or crutches to a cane; then to no assistive devices. C. Make walking a part of your daily routine. Be up as much as comfortable with rest periods throughout the day. Rest with leg elevation is very important. Use the ice wrap frequently for the first 3-4 weeks. D. There are no restrictions on activities. You may ride in a car, shop, participate in production supervisor off shift and all social activities. E. Wear the long elastic stockings (LILO hose) 20 hours a day for 2 weeks after surgery. They can be removed several times a day for laundering and for a bath. F. You may shower, no tub baths until cleared by your doctor. SPECIAL CARE INSTRUCTIONS: VERY IMPORTANT TO READ AND REVIEW A. There are a few signs you need to watch for after you are home. Call [facility] if you notice any of the followin. Increased severe knee pain. Some pain is expected especially when you exercise. 2. Increased swelling in your leg or knee; pain or swelling of the calf muscle in either lower leg. 3. Any fluid drainage from the incision. 4. Shortness of breath or chest pain. B. Please call [facility] at if you have any concerns or questions about your operation or recovery. The doctor or his nurse will return your call promptly. C. You must take antibiotics before dental work, bladder, bowel or other surgery. Your doctor will provide you with a permanent care to carry describing this precaution. IMPORTANT: * REMEMBER TO TAKE ASPIRIN, 81 MG, TWICE DAILY FOR 4 WEEKS UNLESS OTHERWISE DIRECTED. THIS IS YOUR BLOOD THINNER. * HIGH RISK PATIENTS MAY BE PRESCRIBED A STRONGER BLOOD THINNER. THIS WILL BE PROVIDED AT DISCHARGE. * CALL IF INCREASED PAIN, REDNESS, DRAINAGE OR FEVER GREATER THAT 101. * WEAR LILO HOSE 20 HOURS PER DAY FOR 2 WEEKS. * DERMABOND Prineo- This is a mesh tape dressing that is covered with glue. It should remain in place until the incision is properly healed, usually 10-14 days. This dressing is designed to naturally slough off. You may trim the excess mesh tape as it peels off. Incision may be briefly wet in a shower. Dry immediately by blotting with a clean, dry towel. Do not bath or swim until instructed by your doctor. Do not scratch, rub, or pick at the dressing. Do not apply any topical ointments or lotions until dressing is completely removed and/or instructed by your doctor. There may be a small piece of suture material at one end of your incision. Do not pull or trim this. If it is bothersome or catching on clothing, you may cover it with a band-aid. . FOLLOW UP VISIT: If appointment is not already scheduled: Please call [facility] to make a follow-up appointment for 2 weeks after your surgery at . Stand-Alone Forms: My [email or web address], Opioid Pain Management, Smoking Cessation Medications and DC Order Prescriptions: New aspirin 81 mg Tablet,Delayed Release (Dr/Ec) 81 mg PO BID 30 Days Qty: 60 RF: 0 acetaminophen 500 mg Tablet 1,000 mg PO Q8 14 Days Qty: 84 RF: 0 oxycodone 5 mg Tablet 5 mg PO Q4H MDD 6 PRN (Reason: pain) Qty: 30 RF: 0 polyethylene glycol 3350 [Miralax] 17 gram powder in packet 17 g PO DAILY PRN (Reason: constipation) Qty: 5 RF: 0 Continued alprazolam 0.5 mg tablet 0.5 mg PO BID PRN (Reason: anxiety) Qty: 30 RF: 0 cyclobenzaprine 5 mg tablet 5 mg PO TID PRN (Reason: MUSCLE SPASMS) 30 Days Qty: 90 RF: 0 acyclovir 400 mg Tablet 400 mg PO UD PRN (Reason: COLD SORE ) RF: 0 calcium carbonate [Calcium 600] 600 mg calcium (1,500 mg) Tablet 600 mg PO DAILY RF: 0 multivitamin Capsule 1 cap PO DAILY RF: 0 Vitamin B12 Injection 1 dose UD RF: 0 Discharge Orders: Discharge Order (Routine); Ordered 02/13/20 Ordered By: Edison Kellogg/Other Patient Handouts: DVT Post Op Prevention Admission Data Admit Date/Time: 02/11/20 10:24 Attending Provider: Bruno Mesa Admit Provider: Bruno Mesa Primary Care Provider: Marcelle Archibald Other Interventions: Discharge Summary Assessment (RN) Last Done: 02/13/20 13:04
== END 2020-02-13 14:59 | disposition home or self-care (01) ==
LOC: ASU 06:43 → 3E 06:43

== ENCOUNTER 2020-05-12 05:20 | Observation (INO) ==
--- NOTE | 2020-04-10 14:30 | PAT Medication Instructions ---
Medication Instructions Date of Service April 10, 2020 Home Medications Medication Instructions Recorded cyclobenzaprine 5 mg tablet 5 mg PO TID PRN 30 Days #90 tab 01/16/20 polyethylene glycol 3350 [Miralax] 17 g PO DAILY PRN #5 ea 02/13/20 diclofenac sodium 1 % topical gel 4 g TOPICAL QID #100 g 02/21/20 oxycodone 5 mg tablet 5 mg PO Q4H PRN #40 tab MDD 6 03/04/20 sertraline 50 mg tablet 50 mg PO DAILY #90 tab 04/02/20 alprazolam 0.5 mg tablet 0.5 mg PO BID PRN #30 tab 04/09/20 acyclovir 400 mg PO UD PRN calcium carbonate [Calcium 600] 600 mg PO DAILY multivitamin 1 cap PO DAILY cyclobenzaprine 5 mg tablet 5 mg PO TID PRN polyethylene glycol 3350 [Miralax] 17 g PO DAILY PRN diclofenac sodium 1 % topical gel 4 g TOPICAL QID oxycodone 5 mg tablet 5 mg PO Q4H PRN sertraline 50 mg tablet 50 mg PO DAILY alprazolam 0.5 mg tablet 0.5 mg PO BID PRN STOP taking 24 hours before surgery diclofenac sodium 1 % topical gel 4 g TOPICAL QID DO NOT take the morning of surgery calcium carbonate [Calcium 600] 600 mg PO DAILY multivitamin 1 cap PO DAILY cyclobenzaprine 5 mg tablet 5 mg PO TID PRN polyethylene glycol 3350 [Miralax] 17 g PO DAILY PRN Take morning of surgery With a small sip of water, OTHERWISE NOTHING TO EAT OR DRINK AFTER MIDNIGHT: acyclovir 400 mg PO UD PRN (if needed) oxycodone 5 mg tablet 5 mg PO Q4H PRN (okay to take up to 4 hours prior to surgery if needed) sertraline 50 mg tablet 50 mg PO DAILY alprazolam 0.5 mg tablet 0.5 mg PO BID PRN (if needed) Take evening before surgery acyclovir 400 mg PO UD PRN (if needed) cyclobenzaprine 5 mg tablet 5 mg PO TID PRN (if needed) oxycodone 5 mg tablet 5 mg PO Q4H PRN (if needed) sertraline 50 mg tablet 50 mg PO DAILY alprazolam 0.5 mg tablet 0.5 mg PO BID PRN (if needed) Other Notes If you have any questions please call us at [phone] or [phone] or [phone] or [phone]
--- NOTE | 2020-04-14 11:47 | Anesthesiology Consultation ---
Date of Service April 14, 2020 Assessment & Plan (1) Encounter for pre-operative examination: COVID Status: As of 04/14 assessment, patient denies travel to endemic area, known exposure/sick contacts, or symptoms of COVID19. Patient instructed that they and their household members must follow strict social distancing guidelines, wear a mask in public and avoid travel for 14 days prior to surgery. Preoperative COVID19 testing to be completed prior to surgery per surgeon's ar rangements. Patient made aware to self-isolate as much as possible between COVID testing and surgery. S/P TKA 02/11/20 = SAB + PNB both x 1 attempt, well tolerated, no complications. Chart Review Chart Review: Acceptable Risk for Surgery (pending surgeon ordered pcp clearance) and Patient seen in Pre Admission Testing Teaching & Discussion Instructed NPO after midnight before surgery, except medications with 15 cc of water. Medication instructions provided according to the PAT guidelines. History Surgery Operation Date: 05/12/20 08:35 Proposed Procedures p Right Total Knee Arthroplasty - Bruno Mesa DO Height/Weight Height: 5 ft 7 in Weight: 105.2 kg Allergies Allergy/AdvReac Type Severity Reaction Status Date / Time CHOLESTATIN Allergy Unknown per Uncoded 04/02/20 15:01 records, unknown reaction pine Allergy Unknown rash and Uncoded 04/02/20 15:01 congestion Medications Home Medications Medication Instructions Recorded Confirmed Last Taken acyclovir 400 mg PO UD PRN 01/09/20 04/02/20 Unknown calcium carbonate [Calcium 600] 600 mg PO DAILY 01/09/20 04/02/20 02/10/20 18:00 multivitamin 1 cap PO DAILY 01/09/20 04/02/20 02/10/20 07:00 cyclobenzaprine 5 mg tablet 5 mg PO TID PRN 30 Days #90 tab 01/16/20 04/02/20 1 Week Ago ~02/04/20 polyethylene glycol 3350 [Miralax] 17 g PO DAILY PRN #5 ea 02/13/20 04/02/20 Unknown diclofenac sodium 1 % topical gel 4 g TOPICAL QID #100 g 02/21/20 04/02/20 Unknown oxycodone 5 mg tablet 5 mg PO Q4H PRN #40 tab MDD 6 03/04/20 04/02/20 Unknown sertraline 50 mg tablet 50 mg PO DAILY #90 tab 04/02/20 04/02/20 Unknown alprazolam 0.5 mg tablet 0.5 mg PO BID PRN #30 tab 04/09/20 Unknown Past Medical History Medical History (Updated 04/15/20 @ 08:25 by Joseph Guallpa) Allergic rhinitis Anxiety and depression Fibromyalgia History of diabetes mellitus Diagnosed prior to gastric bypass, diet controlled since weight loss. A1C 6.1% 04/14/20. History of high blood pressure No longer treated for, weight loss significantly improved BP. Obesity Osteoarthritis Solitary right kidney donated left kidney Exercise / Class Metabolic Activity II 4-5 Yardwork/Stairs/Walk up hill (Limited by knee pain but denies SOB or CP with 1 FOS) Past Family History Family History Sister Family history of diabetes mellitus Brother Family history of diabetes mellitus Myocardial infarction Sister Family history of diabetes mellitus Mother Myocardial infarction Denies family history of Colon cancer Ovarian cancer Prostate cancer Breast cancer Past Surgical History Surgical History History of 2 sections History of gastric bypass History of hysterectomy History of left knee replacement History of left nephrectomy History of placement of ear tubes History of right knee surgery History of surgery HYMENECTOMY History of total left knee replacement 02/11/2020 [place] S/P panniculectomy 04/26/19 Dr. Rickey Forde- [id number] abdominal panniculectomy Past Anesthesia History No Hx of Anesthesia Complications and No Family Hx of Anesthesia Complications (younger sister PONV) History of PONV No Hx of PONV and No Hx of Motion Sickness Social History Smoking Status: Never smoker Do You Dip or Chew Tobacco: No Hx Alcohol Use: No Hx Substance Use: No substance use type: does not use Review of Systems Pt denies any recent chest pain, shortness of breath, palpitations, cough, fever, URI, or uncontrolled acid reflux. Physical Exam Vital Signs BP: 142/82 P: 82bpm SPO2: 96% RA T: 98.1 F R: 12 ENMT Mouth: no dental restorations, no chipped teeth and no loose teeth Thyromental Distance: > or= 3.5 Finger Breadths Mallampati Class: I Neck normal visual inspection; neck extension not limited Respiratory normal respiratory effort Auscultation: lungs clear to auscultation bilaterally Cardiovascular Rate/Rhythm: regular rate and regular rhythm Heart Sounds: no murmur Extremities: no edema Testing Laboratory Results 04/14/20 11:57 04/14/20 11:57 PT 10.9 Seconds (9.0-12.0) 04/14/20 11:57 INR 1.0 (0.9-1.1) 04/14/20 11:57 APTT 28.7 Seconds (21.0-31.0) 04/14/20 11:57 Hemoglobin A1c 6.1 % (4.5-5.6) H 04/14/20 11:57 Urine Color Dark Yellow 04/14/20 11:57 Urine Appearance Clear (Clear) 04/14/20 11:57 Urine pH 6.0 (4.5-7.5) 04/14/20 11:57 Ur Specific [place] 1.028 (1.000-1.030) 04/14/20 11:57 Urine Protein 1+ (Negative) H 04/14/20 11:57 Urine Glucose (UA) Negative (Negative) 04/14/20 11:57 Urine Ketones Trace (Negative) H 04/14/20 11:57 Urine Nitrite Negative (Negative) 04/14/20 11:57 Ur Leukocyte Esterase Negative (Negative) 04/14/20 11:57 Urine WBC (Auto) 1-5 /hpf (0-5) 04/14/20 11:57 Urine RBC (Auto) 0-4 /hpf (0-4) 04/14/20 11:57 U Hyaline Cast (Auto) 5-10 /lpf (0-5) H 04/14/20 11:57 U Epithel Cells (Auto) 20-30 /lpf (0-5) H 04/14/20 11:57 Urine Bacteria (Auto) Negative (Negative) 04/14/20 11:57 Blood Type O Positive 04/14/20 11:57 Antibody Screen POSITIVE A 04/14/20 11:57 Spoke to Ministerio in Blood Bank re: + AB; nothing further needed prior to surgery. Electrocardiogram Date: 04/14/20 Findings: + NSR @ (73bpm) Chest X-Ray Date: 01/13/20 Findings: + NAD
[2020-04-14 12:22] LABS: Basophils # (auto) 0.01 K/uL (0-0.2); Basophils % (auto) 0.2 %; Hematocrit (blood only) 36.4 % (37-47); Hemoglobin 11.8 g/dL (12.0-16.0); Immature Granulocytes # (auto) 0.01 K/uL (0.00-0.02); Immature Granulocytes % (auto) 0.2 %; Lymphocytes # (auto) 1.26 K/uL (1.2-3.4); Lymphocytes % (auto) 30.5 %; Mean Corpuscular Hemoglobin 27.3 pg (25-34); Mean Corpuscular Hgb Conc 32.4 g/dL (32-36); Mean Corpuscular Volume 84.1 fL (80-100); Mean Platelet Volume 9.7 fL (7.4-10.4); Monocytes % (auto) 9.7 %; Neutrophils # (auto) 2.45 K/uL (1.4-6.5); Neutrophils % (auto) 59.4 %; Platelet Count 205 K/uL (130-400); RDW Coefficient of Variation 15.3 % (11.5-14.5); RDW Standard Deviation 46.9 fL (36.4-46.3); Red Blood Count 4.33 M/uL (4.2-5.4); White Blood Count 4.13 K/uL (4.8-10.8)
[2020-04-14 12:32] LABS: Partial Thromboplastin Time 28.7 Seconds (21.0-31.0); Prothrombin Time 10.9 Seconds (9.0-12.0)
[2020-04-14 12:59] LABS: Estimated Average Glucose 128 mg/dl; Hemoglobin A1C 6.1 % (4.5-5.6)
[2020-04-14 13:00] LABS: Appearance Urine Clear (Clear); Bacteria Urine Automated Negative (Negative); Bilirubin Urine Negative (Negative); Blood Urine Negative (Negative); Color Urine Dark Yellow; Epithelial Cell Urine Auto 20-30 /lpf (0-5); Glucose Urine UA Negative (Negative); Ketones Urine Trace (Negative); Leukocyte Esterase Urine Negative (Negative); Nitrite Urine Negative (Negative); Protein Urine 1+ (Negative); RBC Urine Automated 0-4 /hpf (0-4); Specific Gravity Urine 1.028 (1.000-1.030); Urobilinogen Urine Negative (Negative)
[2020-04-14 14:25] LABS: BUN Creatinine Ratio 17.2 (10-20); Calcium 9.1 mg/dl (8.5-10.1); Creatinine Clr Calc Pharmacy 91.3 ml/min; Est GFR (African American) 84.7; Est GFR (Non-African American) 73.1; Potassium 4.1 mmol/L (3.5-5.1)
--- NOTE | 2020-04-14 16:19 | Electrocardiogram Report ---
Test Reason : Blood Pressure : / mmHG Vent. Rate : 073 BPM Atrial Rate : 073 BPM P-R Int : 182 ms QRS Dur : 096 ms QT Int : 400 ms P-R-T Axes : 057 -29 019 degrees QTc Int : 440 ms Normal sinus rhythm Normal ECG No previous ECGs available Confirmed by Ki Mcgrath ([id number]) on 04/14/2020 4:19:22 PM Referred By: Bruno Mesa Confirmed By:Ki Mcgrath
--- NOTE | 2020-04-27 07:39 | History & Physical Report ---
Date of Service April 27, 2020 date of surgery: 05/12/20 procedure: Right Total Knee Arthroplasty Assessment & Plan (1) Arthritis of right knee: Further care discussed with patient and at this point in time has failed conservative measures and would like to proceed with a Right total knee replacement. Plan on discharge will be home with home health physical therapy. DVT prophalaxis with TEDs, SCDs and will also place on aspirin 81 mg p.o. b.i.d. for a month postop. Patient will have follow up appointment in our office two weeks post op for staple/suture removal and re-evaluation. Patient otherwise has no other questions or concerns. History of Present Illness Chief Complaint: Right knee pain Primary Care Provider: Marcelle Archibald MD Mrs Costello is a 50 year old female who complains of right knee pain, presents for pre-op evaluation prior to a Right total knee replacement by dr Mesa at [facility]. she complains of pain, crepitus, decreased range of motion, instability and stiffness in her right knee. she states that the symptoms occur constantly with intermittent worsening. Currently the patient states that the symptoms are moderate-severe. The pain is described as aching, sharp and throbbing. The symptoms occur continuously. The symptoms are aggravated by ascending stairs, daily activities, first steps while awake walking. Prior NSAIDs include IBU and Aleve. she has been treated with previous cortisone injections as well as clinical trials in the past without much relief. she had prior right knee scope in Feb 2018. Allergies Allergy/AdvReac Type Severity Reaction Status Date / Time CHOLESTATIN Allergy Unknown per Uncoded 04/16/20 15:17 records, unknown reaction pine Allergy Unknown rash and Uncoded 04/16/20 15:17 congestion Home Medications Home Medications Medication Instructions Recorded Confirmed Type acyclovir 400 mg PO UD PRN 01/09/20 04/16/20 History calcium carbonate [Calcium 600] 600 mg PO DAILY 01/09/20 04/16/20 History multivitamin 1 cap PO DAILY 01/09/20 04/16/20 History cyclobenzaprine 5 mg tablet 5 mg PO TID PRN 30 Days #90 tab 01/16/20 04/16/20 Rx polyethylene glycol 3350 [Miralax] 17 g PO DAILY PRN #5 ea 02/13/20 04/16/20 Rx diclofenac sodium 1 % topical gel 4 g TOPICAL QID #100 g 02/21/20 04/16/20 Rx oxycodone 5 mg tablet 5 mg PO Q4H PRN #40 tab MDD 6 03/04/20 04/16/20 Rx sertraline 50 mg tablet 50 mg PO DAILY #90 tab 04/02/20 04/16/20 Rx alprazolam 0.5 mg tablet 0.5 mg PO BID PRN #30 tab 04/09/20 04/16/20 Rx Past Med/Surg History Medical History Allergic rhinitis Anxiety and depression Fibromyalgia History of diabetes mellitus Diagnosed prior to gastric bypass, diet controlled since weight loss. A1C 6.1% 04/14/20. History of high blood pressure No longer treated for, weight loss significantly improved BP. Obesity Osteoarthritis Solitary right kidney donated left kidney Surgical History History of 2 sections History of gastric bypass History of hysterectomy History of left knee replacement History of left nephrectomy History of placement of ear tubes History of right knee surgery History of surgery HYMENECTOMY History of total left knee replacement 02/11/2020 [place] S/P panniculectomy 04/26/19 Dr. 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 Assistant Required: No Beliefs That Will Affect Care: None marital status: Current Living Situation: Spouse and Family Feels Safe at Home: Yes Assistive Devices: Walker Review of Systems Review of Systems: All systems reviewed & are unremarkable except as noted in HPI & below Constitutional: no fever, no chills and no sweats Respiratory: no cough and no dyspnea Cardiovascular: no chest pain, no dyspnea and no orthopnea Gastrointestinal: no abdominal pain, no nausea and no vomiting Musculoskeletal: as per Subjective / HPI Physical Exam Physical Exam: HT: 5ft 7in Wt: 105.2kg BP: 120/90 Constitutional: WD/WN, vitals as above no acute distress Respiratory: normal respiratory effort, lungs clear to auscultation no respiratory distress, no labored breathing and does not use accessory muscles Cardiovascular: RRR, no murmur, no edema Gastrointestinal (Abdomen): normal bowel sounds, soft, nontender, no hepatosplenomegaly Musculoskeletal: Knee: + knee abnormal to inspection (Right Knee-), + effusion (+1 effusion), + surgical incision (well healed portals), + limited ROM of knee (ROM 0/3/110), + knee ROM with crepitation, + joint line tenderness (medial joint line) and + Pollo's sign positive; no deformity, no skin erythema, no ecchymosis, no valgus laxity, no varus laxity, anterior drawer test negative, Kiara's sign negative and pivot shift test negative Results & Data Results & Data ([facility]) Laboratory Results Laboratory Results WBC 4.13 K/uL (4.8-10.8) L 04/14/20 11:57 RBC 4.33 M/uL (4.2-5.4) 04/14/20 11:57 Hgb 11.8 g/dL (12.0-16.0) L 04/14/20 11:57 Hct 36.4 % (37-47) L 04/14/20 11:57 MCV 84.1 fL (80-100) 04/14/20 11:57 MCH 27.3 pg (25-34) 04/14/20 11:57 MCHC 32.4 g/dL (32-36) 04/14/20 11:57 RDW Std Deviation 46.9 fL (36.4-46.3) H 04/14/20 11:57 RDW Coeff of [place]erson 15.3 % (11.5-14.5) H 04/14/20 11:57 Plt Count 205 K/uL (130-400) 04/14/20 11:57 MPV 9.7 fL (7.4-10.4) 04/14/20 11:57 Immature Gran % (Auto) 0.2 % 04/14/20 11:57 Neut % (Auto) 59.4 % 04/14/20 11:57 Lymph % (Auto) 30.5 % 04/14/20 11:57 [place] % (Auto) 9.7 % 04/14/20 11:57 Eos % (Auto) 0.0 % 04/14/20 11:57 Baso % (Auto) 0.2 % 04/14/20 11:57 Neut # (Auto) 2.45 K/uL (1.4-6.5) 04/14/20 11:57 Lymph # (Auto) 1.26 K/uL (1.2-3.4) 04/14/20 11:57 [place] # (Auto) 0.40 K/uL (0.11-0.59) 04/14/20 11:57 Eos # (Auto) 0.00 K/uL (0-0.5) 04/14/20 11:57 Baso # (Auto) 0.01 K/uL (0-0.2) 04/14/20 11:57 Immature Gran # (Auto) 0.01 K/uL (0.00-0.02) 04/14/20 11:57 PT 10.9 Seconds (9.0-12.0) 04/14/20 11:57 INR 1.0 (0.9-1.1) 04/14/20 11:57 APTT 28.7 Seconds (21.0-31.0) 04/14/20 11:57 PTT Ratio 1.0 04/14/20 11:57 Sodium 141 mmol/L (136-145) 04/14/20 11:57 Potassium 4.1 mmol/L (3.5-5.1) 04/14/20 11:57 Chloride 108 mmol/L (98-107) H 04/14/20 11:57 Carbon Dioxide 27 mmol/L (21-32) 04/14/20 11:57 Anion Gap 6.0 (3-11) 04/14/20 11:57 BUN 16 mg/dl (7-18) 04/14/20 11:57 Creatinine 0.91 mg/dl (0.6-1.2) 04/14/20 11:57 Est Cr Clr Drug Dosing 91.3 ml/min 04/14/20 11:57 Est GFR ( Amer) 84.7 04/14/20 11:57 Est GFR (Non-Af Amer) 73.1 04/14/20 11:57 BUN/Creatinine Ratio 17.2 (-20) 04/14/20 11:57 Glucose 142 mg/dl (70-99) H 04/14/20 11:57 Estimat Average Glucose 128 mg/dl 04/14/20 11:57 Hemoglobin A1c 6.1 % (4.5-5.6) H 04/14/20 11:57 Calcium 9.1 mg/dl (8.5-10.1) 04/14/20 11:57 Albumin 4.0 gm/dl (3.4-5.0) 04/14/20 11:57 Urine Color Dark Yellow 04/14/20 11:57 Urine Appearance Clear (Clear) 04/14/20 11:57 Urine pH 6.0 (4.5-7.5) 04/14/20 11:57 Ur Specific [place] 1.028 (1.000-1.030) 04/14/20 11:57 Urine Protein 1+ (Negative) H 04/14/20 11:57 Urine Glucose (UA) Negative (Negative) 04/14/20 11:57 Urine Ketones Trace (Negative) H 04/14/20 11:57 Urine Blood Negative (Negative) 04/14/20 11:57 Urine Nitrite Negative (Negative) 04/14/20 11:57 Urine Bilirubin Negative (Negative) 04/14/20 11:57 Urine Urobilinogen Negative (Negative) 04/14/20 11:57 Ur Leukocyte Esterase Negative (Negative) 04/14/20 11:57 Urine WBC (Auto) 1-5 /hpf (0-5) 04/14/20 11:57 Urine RBC (Auto) 0-4 /hpf (0-4) 04/14/20 11:57 U Hyaline Cast (Auto) 5-10 /lpf (0-5) H 04/14/20 11:57 U Epithel Cells (Auto) 20-30 /lpf (0-5) H 04/14/20 11:57 Urine Bacteria (Auto) Negative (Negative) 04/14/20 11:57 Blood Type O Positive 04/14/20 11:57 Antibody Screen POSITIVE A 04/14/20 11:57 Antibody Identification Anti-c 04/14/20 11:57 Antibody ID Comment 04/14/20 11:57 Diagnostic Findings Right Knee X-ray: Right knee series showing degenerative changes to the right knee, narrowing of the medial compartment and patello-femoral joint with patellar spurring noted, findings showing joint space narrowing of the medial compartment and patello- femoral joint, osteophyte formation and subchondral sclerosis noted. overall varus alignment. no acute bony pathology noted.
[2020-05-12] MEDS ORDERED: TRANEXAMIC ACID 1,000 MG **IV Intra-op IV SCH (06:00)
[2020-05-12] MEDS ORDERED: TRANEXAMIC ACID 1,000 MG **IV Pre-op IV SCH (06:00)
[2020-05-12] MEDS ORDERED: ACETAMINOPHEN 500 MG TAB PO SCH (06:00)
[2020-05-12] MEDS ORDERED: METOCLOPRAMIDE HCL 10 MG TABLET PO SCH (06:00)
[2020-05-12] MEDS ORDERED: ceFAZolin 2000MG 2,000 MG/15 ML SYR IV SCH (06:00)
[2020-05-12] MEDS ORDERED: dexAMETHasone 4 MG TAB PO SCH (06:00)
[2020-05-12] MEDS ORDERED: GABAPENTIN 900 MG DOSE PO SCH (06:00)
[2020-05-12] MEDS ORDERED: ROPIVACAINE 0.5% HCL/PF 150 MG, BUPIVACAINE 0.5% MPF 30 ML, EPINEPHrine 30MG/30ML (OR U... INSTIL SCH (06:00)
[2020-05-12] MEDS ORDERED: FAMOTIDINE 20 MG TAB PO SCH (06:00)
[2020-05-12] MEDS ORDERED: CeleBREX 200 MG CAP PO SCH ×2 (06:00→18:00)
[2020-05-12] MEDS ORDERED: LR 500ML BOLUS, THEN 15ML/HR IV SCH (06:00)
[2020-05-12] MEDS ORDERED: EPINEPHrine INJ 1 MG/ML AMP ONE (06:25)
[2020-05-12] MEDS ORDERED: ROPIVACAINE 0.5% 5 MG/ML 30 ML VIAL ONE (06:25)
[2020-05-12] MEDS ORDERED: BUPIVACAINE 0.5 % 5 MG/1 ML PF 10ML VIAL ONE (06:25)
[2020-05-12] MEDS ORDERED: BACITRACIN INJ 50,000 UNIT VIAL ONE (06:52)
[2020-05-12] MEDS ORDERED: ORTHO JOINT ANESTHETIC ONE (06:52)
[2020-05-12] MEDS ORDERED: fentaNYL citrate 100 MCG/2 ML VIAL ONE (06:53)
[2020-05-12] MEDS ORDERED: MIDAZOLAM HCL 1 MG/ML 2ML VIAL ONE (06:53)
--- NOTE | 2020-05-12 07:12 | History & Physical Bridge Note ---
Date of Service May 12, 2020 History & Physical Bridge Note I have examined the patient, reviewed the History & Physical and in the interval since the performance of the History & Physical I have noted the following changes of clinical significance: no changes noted
[2020-05-12] MEDS ORDERED: ATROPINE SULFATE 0.1 MG/ML 10ML SYR IV PRN (07:58)
[2020-05-12] MEDS ORDERED: ePHEDrine sulfate 50 MG/ML AMP IV PRN (07:58)
[2020-05-12] MEDS ORDERED: LIDOCAINE HCL 2% 2 ML VIAL/AMP(20MG/ML) INFIL ONE (08:19)
[2020-05-12] MEDS ORDERED: PROPOFOL IV EMULSION 10 MG/ML 20 ML VIAL IV ONE (08:19)
--- NOTE | 2020-05-12 08:24 | Operative Report ---
Post Operative Report Pre & Post Diagnosis Operation Date: 05/12/20 07:15 Pre-Op Diagnosis: Osteoarthritis Right Knee Post-Op Diagnosis: Osteoarthritis Right Knee I identified the patient and participated in the time-out.: Yes Procedure Utilizing [employer] 2 patient matched total knee arthroplasty size 5 femur 4 tibia 12 polyethylene 32 oval patella Operation Date: 05/12/20 07:15 Actual Procedures p Right Total Knee Arthroplasty(Right) utilizing [employer] 2 patient matched total knee arthroplasty size 5 femur 4 tibia 12 polyethylene 32 oval patella Surgeon Bruno Mesa DO Supervisor [employer] ESCDUERO Estimated Blood Loss 5 Findings Consistent with Post-Op Diagnosis Patient presents with severe end-stage tricompartmental degenerative joint disease right knee varus alignment subchondral sclerosis marginal osteophytes [id number] eburnated bone with moderate to large effusion 8 degree flexion contracture Specimens Bone and cartilage Drains Medium bore Hemovac Anesthesia Type MAC Spinal Regional Complications none Disposition Accompanied Patient To Recovery: No Disposition: Recovery Room Indications Patient presents with severe end-stage tricompartmental degenerative joint disease of the right knee no response to conservative management patient failed times a corticosteroid injection Visco supplementation relative rest activity modification bracing corticosteroid injection patient presents for right total knee arthroplasty Description of Procedure After proper prepping and draping of the Right lower extremity anterior midline incision was made over the region of the extensor extensor mechanism after meticulous hemostasis was obtained and maintained in subcutaneous tissues a medial parapatellar incision was made The patella was subluxed lateralward the medial lateral gutter were cleaned from any hypertrophic synovitis and scar ti ssue of the distal femoral block was placed and the distal femoral osteotomy cut was made subsequently the chamfers anterior and posterior osteotomy cuts were made utilizing the 4-in-1 block the tibia was subsequently subluxed anteriorward medial and ateral meniscal remnants were excised in their entirety remnants of the anterior and posterior cruciate ligaments were excised in their entirety excellent exposure of the proximal tibia was obtained the tibial osteotomy guide was placed on the proximal tibial osteotomy cut was made once again the knee was irrigated with copious amounts of sterile saline solution the patella was subsequently everted lateralward thickened scar tissue around the patella was removed the patella was subsequently cut utilizing a freehand technique and was drilled prepared for final preparation and placement of patella socially flexion-extension gaps were checked and the equal and symmetric trials were placed to the appropriate femoral and tibial trials with poly-spacer being placed for equal flexion and extension gaps and full range of motion including extension to 0 and flexion to 140 the trial components after having been taken to recovery range of motion was subsequently removed meticulous hemostasis was obtained and maintained subsequently a knee block injection of joint cocktail including ropivacaine 0.5% 150 mg. Bupivacaine 0.5% epinephrine 1-200,030 mL's toradol 30 mg dexamethasone 4 mg ketamine 10 mg clonidine 100 micrograms normal saline solution 30 mg was infiltrated into the soft tissues of the posterior knee medial lateral gutters and periosteal synovium special attention was paid to protect neurovascular structures at all times subsequently trial components having been removed the knee was irrigated with sterile saline solution. debris was removed the proximal tibia was subsequently prepared and was made ready for the placement of the tibial component tibial component was also cemented and tamped into position the femoral component was subsequently placed and cemented in the position the patellar component was subsequently cemented in position because hemostasis once again obtained and maintained wound having been thoroughly irrigated with debridement and debridement lavage was performed as well as a medial parapatellar incision closed with #1 Vicryl in interrupted fashion subcutaneous was closed with #2 Vicryl skin was closed with skin clips. PA-C was necessary for prepping and drapping as well as wound closure of deep fascia Sub cutaneous tissue and skin and was necessary for the case. A sterile compressive dressing was placed patient was taken to recovery in stable condition of report dictated by Moshe I attest to the content of the Intraoperative Record and any orders documented therein. Any exceptions are noted below. I attest to the content of the Intraoperative Record and any orders documented therein. Any exceptions are noted below.
--- NOTE | 2020-05-12 09:37 | XRay Report ---
RIGHT KNEE 2 VIEWS History: Right total knee arthroplasty. Degenerative arthritis. Postop. FINDINGS: The patient is status post a right total knee arthroplasty. The hardware is intact. No frac ture or dislocation. Surgical drains are in place. IMPRESSION: Right total knee arthroplasty. No evidence for hardware complication. ACT 112: Negative or not required by law. Electronically signed by: Lauro Molina M.D. 05/12/2020 9:36 AM
[2020-05-12] MEDS ORDERED: ONDANSETRON INJ 2 MG/ML 2 ML VIAL IV PRN (10:06)
[2020-05-12] MEDS ORDERED: MAGNESIUM HYDROXIDE SUSP 30 ML UDC PO PRN (10:06)
[2020-05-12] MEDS ORDERED: HYDROmorphone INJ 1 MG/ML SYRINGE IV PRN (10:06)
[2020-05-12] MEDS ORDERED: ACYCLOVIR 400 MG TAB PO PRN (10:06)
[2020-05-12] MEDS ORDERED: bisacodyL 10 MG SUPP PR PRN (10:06)
[2020-05-12] MEDS ORDERED: NALOXONE HCL 0.4 MG/1 ML VIAL/CARP IV PRN (10:06)
[2020-05-12] MEDS ORDERED: POLYETHYLENE (MIRALAX) 17 GM PACK PO PRN (10:06)
[2020-05-12] MEDS ORDERED: CYCLOBENZAPRINE HCL 5 MG TAB PO PRN (10:06)
[2020-05-12] MEDS ORDERED: diphenhydrAMINE Capsule 25 MG CAP PO PRN (10:06)
[2020-05-12] MEDS ORDERED: ALPRAZolam 0.5 MG TABLET PO PRN (10:06)
[2020-05-12] MEDS ORDERED: METOCLOPRAMIDE HCL INJ 5 MG/ML 2 ML VIAL IV PRN (10:06)
--- NOTE | 2020-05-12 10:07 | Anesthesiology Progress Note ---
Date of Service May 12, 2020 Anesthesia Post Procedure Vital Signs Vital Signs: Temp Pulse Pulse Resp BP Pulse Ox 05/12/20 09:45 90 16 148/86 H 95 05/12/20 09:35 36.5 C 90 15 138/84 98 05/12/20 09:25 94 H 16 147/78 H 100 05/12/20 09:15 93 H 15 141/78 H 100 05/12/20 09:07 36 C L 100 H 16 133/77 100 05/12/20 05:51 37 C 74 18 159/95 H 97 Pain Intensity Bilateral Knee: Pain Intensity: 4 Transfer of Care Handoff Completed per policy Notes Mental Status: alert / awake / arousable Patient Amnestic to Procedure: Yes Nausea / Vomiting: adequately controlled Pain: adequately controlled Airway Patency, RR, SpO2: stable & adequate BP & HR: stable & adequate Hydration State: stable & adequate Neuraxial Anesthesia: was administered and sensory block is resolving Anesthetic Complications: no major complications apparent
[2020-05-12] MEDS: MULTIVITAMIN TAB PO SCH (10:51)
[2020-05-12] MEDS: DOCUSATE SODIUM 100 MG CAP PO SCH ×2 (10:51→21:20)
[2020-05-12] MEDS: CALCIUM CARBONATE 1250MG TAB PO SCH (10:51)
[2020-05-12] MEDS: ASPIRIN 81 MG ECTAB PO SCH ×2 (10:52→21:20)
[2020-05-12] MEDS: KETOROLAC 30 MG/ML VIAL IV SCH ×3 (10:52→22:15)
[2020-05-12] MEDS: SODIUM CHLORIDE 0.9% 1000ML 1,000 ML IV SCH ×2 (10:52→20:49)
[2020-05-12] MEDS ORDERED: SERTRALINE HCL 50 MG TABLET PO SCH ×2 (11:00→21:00)
[2020-05-12] MEDS ORDERED: Nursing to Pharmacy Communication SCH (11:00)
[2020-05-12] MEDS: ACETAMINOPHEN 500 MG TAB PO SCH ×2 (13:56→21:20)
[2020-05-12] MEDS: ceFAZolin 2000MG 2,000 MG/15 ML SYR IV SCH ×2 (14:34→22:14)
[2020-05-12] MEDS: oxyCODONE HCL IR 5 MG TAB (IMMEDIATE RELEASE) PO PRN (14:44)
[2020-05-12] MEDS ORDERED: SENNA 8.6 MG TAB PO SCH (21:00)
[2020-05-13] MEDS: KETOROLAC 30 MG/ML VIAL IV SCH (05:28)
[2020-05-13] MEDS: ACETAMINOPHEN 500 MG TAB PO SCH (05:28)
[2020-05-13 06:17] LABS: Hematocrit (blood only) 32.7 % (37-47); Hemoglobin 10.4 g/dL (12.0-16.0); Mean Corpuscular Hemoglobin 27.2 pg (25-34); Mean Corpuscular Hgb Conc 31.8 g/dL (32-36); Mean Corpuscular Volume 85.6 fL (80-100); Mean Platelet Volume 10.2 fL (7.4-10.4); Platelet Count 238 K/uL (130-400); RDW Coefficient of Variation 15.9 % (11.5-14.5); RDW Standard Deviation 50.4 fL (36.4-46.3); Red Blood Count 3.82 M/uL (4.2-5.4); White Blood Count 8.72 K/uL (4.8-10.8)
[2020-05-13 06:37] LABS: BUN Creatinine Ratio 23.7 (10-20); Calcium 8.6 mg/dl (8.5-10.1); Creatinine Clr Calc Pharmacy 102.3 ml/min; Est GFR (African American) 97.5; Est GFR (Non-African American) 84.1; Potassium 3.9 mmol/L (3.5-5.1)
[2020-05-13] MEDS: oxyCODONE HCL IR 5 MG TAB (IMMEDIATE RELEASE) PO PRN ×2 (07:30→11:32)
--- NOTE | 2020-05-13 08:59 | Orthopedic Progress Note ---
Date of Service May 13, 2020 Assessment & Plan (1) Arthritis of right knee: Postop day 1 status post right total knee arthroplasty PT/OT protocols. Weightbearing as tolerated. DVT prophylaxis-aspirin p.o. twice daily, SCDs, LILO owens. Pain management as written. DC planning-is planning for outpatient PT upon discharge. Admission and Anticipated Discharge Date Admission Date: May 12, 2020 Subjective Postop day 1 Patient is sitting up in her bed eating breakfast. No complaints this morning. Pain is controlled. Denies shortness of breath, chest pain, lightheadedness. Physical Exam Physical Exam: Dressings are clean, dry, and intact. Calves are soft and nontender. Neurovascular is intact. Toes are mobile. She has good dorsiflexion and plantarflexion of the right foot and ankle. Hemovac drainage was 50 mL from the previous shift. Results & Data ([facility]) Vital Signs (Past 12 Hours) Vital Signs Temp Pulse Resp BP Pulse Ox 05/13/20 08:01 37.1 C 71 16 149/83 H 97 05/13/20 03:23 36.7 C 71 16 158/97 H 94 05/12/20 23:49 36.5 C 73 16 150/78 H 97 Laboratory Results Laboratory Results WBC 8.72 K/uL (4.8-10.8) 05/13/20 05:25 RBC 3.82 M/uL (4.2-5.4) L 05/13/20 05:25 Hgb 10.4 g/dL (12.0-16.0) L 05/13/20 05:25 Hct 32.7 % (37-47) L 05/13/20 05:25 MCV 85.6 fL (80-100) 05/13/20 05:25 MCH 27.2 pg (25-34) 05/13/20 05:25 MCHC 31.8 g/dL (32-36) L 05/13/20 05:25 RDW Std Deviation 50.4 fL (36.4-46.3) H 05/13/20 05:25 RDW Coeff of Gerson 15.9 % (11.5-14.5) H 05/13/20 05:25 Plt Count 238 K/uL (130-400) 05/13/20 05:25 MPV 10.2 fL (7.4-10.4) 05/13/20 05:25 Immature Gran % (Auto) 0.2 % 04/14/20 11:57 Neut % (Auto) 59.4 % 04/14/20 11:57 Lymph % (Auto) 30.5 % 04/14/20 11:57 Otoe % (Auto) 9.7 % 04/14/20 11:57 Eos % (Auto) 0.0 % 04/14/20 11:57 Baso % (Auto) 0.2 % 04/14/20 11:57 Neut # (Auto) 2.45 K/uL (1.4-6.5) 04/14/20 11:57 Lymph # (Auto) 1.26 K/uL (1.2-3.4) 04/14/20 11:57 Otoe # (Auto) 0.40 K/uL (0.11-0.59) 04/14/20 11:57 Eos # (Auto) 0.00 K/uL (0-0.5) 04/14/20 11:57 Baso # (Auto) 0.01 K/uL (0-0.2) 04/14/20 11:57 Immature Gran # (Auto) 0.01 K/uL (0.00-0.02) 04/14/20 11:57 PT 10.9 Seconds (9.0-12.0) 04/14/20 11:57 INR 1.0 (0.9-1.1) 04/14/20 11:57 APTT 28.7 Seconds (21.0-31.0) 04/14/20 11:57 PTT Ratio 1.0 04/14/20 11:57 Sodium 141 mmol/L (136-145) 05/13/20 05:25 Potassium 3.9 mmol/L (3.5-5.1) 05/13/20 05:25 Chloride 110 mmol/L (98-107) H 05/13/20 05:25 Carbon Dioxide 27 mmol/L (21-32) 05/13/20 05:25 Anion Gap 4.0 (3-11) 05/13/20 05:25 BUN 19 mg/dl (7-18) H 05/13/20 05:25 Creatinine 0.81 mg/dl (0.6-1.2) 05/13/20 05:25 Est Cr Clr Drug Dosing 102.3 ml/min 05/13/20 05:25 Est GFR ( Amer) 97.5 05/13/20 05:25 Est GFR (Non-Af Amer) 84.1 05/13/20 05:25 BUN/Creatinine Ratio 23.7 (10-20) H 05/13/20 05:25 Glucose 114 mg/dl (70-99) H 05/13/20 05:25 POC Glucose 164 mg/dl (70-99) H 05/12/20 09:27 Estimat Average Glucose 128 mg/dl 04/14/20 11:57 Hemoglobin A1c 6.1 % (4.5-5.6) H 04/14/20 11:57 Calcium 8.6 mg/dl (8.5-10.1) 05/13/20 05:25 Albumin 4.0 gm/dl (3.4-5.0) 04/14/20 11:57 Urine Color Dark Yellow 04/14/20 11:57 Urine Appearance Clear (Clear) 04/14/20 11:57 Urine pH 6.0 (4.5-7.5) 04/14/20 11:57 Ur Specific [place] 1.028 (1.000-1.030) 04/14/20 11:57 Urine Protein 1+ (Negative) H 04/14/20 11:57 Urine Glucose (UA) Negative (Negative) 04/14/20 11:57 Urine Ketones Trace (Negative) H 04/14/20 11:57 Urine Blood Negative (Negative) 04/14/20 11:57 Urine Nitrite Negative (Negative) 04/14/20 11:57 Urine Bilirubin Negative (Negative) 04/14/20 11:57 Urine Urobilinogen Negative (Negative) 04/14/20 11:57 Ur Leukocyte Esterase Negative (Negative) 04/14/20 11:57 Urine WBC (Auto) 1-5 /hpf (0-5) 04/14/20 11:57 Urine RBC (Auto) 0-4 /hpf (0-4) 04/14/20 11:57 U Hyaline Cast (Auto) 5-10 /lpf (0-5) H 04/14/20 11:57 U Epithel Cells (Auto) 20-30 /lpf (0-5) H 10/20/20 11:57 Urine Bacteria (Auto) Negative (Negative) 04/14/20 11:57 Blood Type O Positive 05/12/20 05:42 Antibody Screen POSITIVE A 05/12/20 05:42 Antibody Identification Anti-c 05/12/20 05:42 Antibody ID Comment 05/12/20 05:42 Crossmatch See Detail 05/12/20 05:42
[2020-05-13] MEDS: DOCUSATE SODIUM 100 MG CAP PO SCH (09:15)
[2020-05-13] MEDS: MULTIVITAMIN TAB PO SCH (09:15)
[2020-05-13] MEDS: ASPIRIN 81 MG ECTAB PO SCH (09:15)
[2020-05-13] MEDS: CALCIUM CARBONATE 1250MG TAB PO SCH (09:16)
[2020-05-13 11:58] VITALS: BP 143/81; PULSE 67; TEMP 98.6; O2SAT 98
[2020-05-13] MEDS ORDERED: CeleBREX 200 MG CAP PO SCH (12:00)
--- NOTE | 2020-05-14 14:23 | Discharge Summary ---
Date of Service May 14, 2020 Admission HPI Per Admitting Provider Mrs Avila is a 50 year old female who complains of right knee pain, presents for pre-op evaluation prior to a Right total knee replacement by dr Mesa at [facility]. she complains of pain, crepitus, decreased range of motion, instability and stiffness in her right knee. she states that the symptoms occur constantly with intermittent worsening. Currently the patient states that the symptoms are moderate-severe. The pain is described as aching, sharp and throbbing. The symptoms occur continuously. The symptoms are aggravated by ascending stairs, daily activities, first steps while awake walking. Prior NSAIDs include IBU and Aleve. she has been treated with previous cortisone injections as well as clinical trials in the past without much relief. she had prior right knee scope in Feb 2018. Admission Exam Per Admitting Provider Physical Exam: HT: 5ft 7in Wt: 105.2kg BP: 120/90 Constitutional: WD/WN, vitals as above no acute distress Respiratory: normal respiratory effort, lungs clear to auscultation no respiratory distress, no labored breathing and does not use accessory muscles Cardiovascular: RRR, no murmur, no edema Gastrointestinal (Abdomen): normal bowel sounds, soft, nontender, no hepatosplenomegaly Musculoskeletal: Knee: + knee abnormal to inspection (Right Knee-), + effusion (+1 effusion), + surgical incision (well healed portals), + limited ROM of knee (ROM 0/3/110), + knee ROM with crepitation, + joint line tenderness (medial joint line) and + Pollo's sign positive; no deformity, no skin eryth maryuri, no ecchymosis, no valgus laxity, no varus laxity, anterior drawer test negative, Kiara's sign negative and pivot shift test negative Principal Diagnosis Right Knee Djd Discharge Exam Physical Exam: Dressings are clean, dry, and intact. Calves are soft and nontender. Neurovascular is intact. Toes are mobile. She has good dorsiflexion and plantarflexion of the right foot and ankle. Hemovac drainage was 50 mL from the previous shift. Discharge Data Allergies Allergy/AdvReac Type Severity Reaction Status Date / Time CHOLESTATIN Allergy Unknown per Uncoded 05/12/20 05:41 records, unknown reaction pine Allergy Unknown rash and Uncoded 05/12/20 05:41 congestion Consultations 05/12/20 10:06 Consult Case Management - Discharge Planning Routine Procedures Performed Operation Date: 05/12/20 07:15 Actual Procedures p Right Total Knee Arthroplasty(Right) - Bruno Mesa DO Ordered Studies 05/12/20 05:00 US - OR guided needle placemen Routine Hospital Course (1) Arthritis of right knee: [facility] [address] Orthopedic Progress NoteSigned Patient: PAUL AVILA Date: 05/12/20MR#: [id number] Phy: Bruno Mesa,DWilyOWilyAcct ID:[id number] Phy: Marcelle Archibald MDBirth Date: 1970Fam Phy: Marcelle Archibald MDAge: [phone]: 3ESex: F Room/Bed: [facility] cc: ~ *NOTICE TO RECEIVING GREEN PARTY/AGENCY This information is strictly Confidential and protected under [place] law. [place] law prohibits you from ma bridget any further disclosure of this information unless further disclosure is expressly permitted by the written consent of the person to whom it pertains or is authorized by law. A general authorization for the release of medical or other information is not sufficient for this purpose. Hospital accepts no responsibility if the information is made available to any other person, INCLUDING THE PATIENT. Date of Service May 13, 2020 Assessment & Plan (1) Arthritis of right knee: Postop day 1 status post right total knee arthroplasty PT/OT protocols. Weightbearing as tolerated. DVT prophylaxis-aspirin p.o. twice daily, SCDs, LILO owens. Pain management as written. DC planning-is planning for outpatient PT upon discharge. Pt progressed well with her PT/OT protocols. Ambulated 400'. Pt was remaining stable and was felt she could be discharged to home. Admission and Anticipated Discharge Date Admission Date: May 12, 2020 Subjective Postop day 1 Patient is sitting up in her bed eating breakfast. No complaints this morning. Pain is controlled. Denies shortness of breath, chest pain, lightheadedness. Physical Exam Physical Exam: Dressings are clean, dry, and intact. Calves are soft and nontender. Neurovascular is intact. Toes are mobile. She has good dorsiflexion and plantarflexion of the right foot and ankle. Hemovac drainage was 50 mL from the previous shift. Results & Data ([facility] [place]) Vital Signs (Past 12 Hours) Vital Signs Temp Pulse Resp BP Pulse Ox 05/13/20 08:01 37.1 C 71 16 149/83 H 97 05/13/20 03:23 36.7 C 71 16 158/97 H 94 05/12/20 23:49 36.5 C 73 16 150/78 H 97 Laboratory Results Laboratory Results WBC 8.72 K/uL (4.8-10.8) 05/13/20 05:25 RBC 3.82 M/uL (4.2-5.4) L 05/13/20 05:25 Hgb 10.4 g/dL (12.0-16.0) L 05/13/20 05:25 Hct 32.7 % (37-47) L 05/13/20 05:25 Total Time Total Time Spent Total Time Spent (In Minutes): 5 Discharge Plan Discharge Items Patient Disposition: Home - Self-Care Reason For Visit: Osteoarthritis Right Knee Discharge Diagnosis: Osteoarthritis right knee Condition on Discharge: Good Activity: Per Instructions section Lifting: Wait until after follow-up appointment Weightbearing: Right weightbearing Weightbearing Comment: As tolerated with walker Non-emergency contact: Surgeon Call non-emergency contact if: your pain is not controlled, your temperature is above 101.5, your wound has increased redness and your wound has increased drainage Follow-up/Referrals: Marcelle Archibald MD [Primary Care Provider] - Diet: Regular Addtl Attending Provider Instructions: ACTIVITY RECOMMENDATIONS: SELF CARE INSTRUCTIONS AFTER TOTAL KNEE REPLACEMENT A. You may need to continue a physical therapy program after discharge from the hospital. There are several options available to you. Your doctor will assist you in selecting the best one for you. 1. An out-patient facility 2 to 3 times a week for therapy or home therapy. 2. Continue working on all exercises taught to you in the hospital. Your goals should be to increase bending of your knee to 90 degrees and beyond and to fully straighten your knee. B. You may progress at your own pace from walking with a walker or crutches to a cane; then to no assistive devices. C. Make walking a part of your daily routine. Be up as much as comfortable with rest periods throughout the day. Rest with leg elevation is very important. Use the ice wrap frequently for the first 3-4 weeks. D. There are no restrictions on activities. You may ride in a car, shop, participate in [employer]ivist [employer] history and all social activities. E. Wear the long elastic stockings (LILO hose) 20 hours a day for 2 weeks after surgery. They can be removed several times a day for laundering and for a bath. F. You may shower, no tub baths until cleared by your doctor. SPECIAL CARE INSTRUCTIONS: VERY IMPORTANT TO READ AND REVIEW A. There are a few signs you need to watch for after you are home. Call [facility] if you notice any of the followin. Increased severe knee pain. Some pain is expected especially when you exercise. 2. Increased swelling in your leg or knee; pain or swelling of the calf muscle in either lower leg. 3. Any fluid drainage from the incision. 4. Shortness of breath or chest pain. B. Please call [facility] at if you have any concerns or questions about your operation or recovery. The doctor or his nurse will return your call promptly. C. You must take antibiotics before dental work, bladder, bowel or other surgery. Your doctor will provide you with a permanent care to carry describing this precaution. IMPORTANT: * REMEMBER TO TAKE ASPIRIN, 81 MG, TWICE DAILY FOR 4 WEEKS UNLESS OTHERWISE DIRECTED. THIS IS YOUR BLOOD THINNER. * HIGH RISK PATIENTS MAY BE PRESCRIBED A STRONGER BLOOD THINNER. THIS WILL BE PROVIDED AT DISCHARGE. * CALL IF INCREASED PAIN, REDNESS, DRAINAGE OR FEVER GREATER THAT 101. * WEAR LILO HOSE 20 HOURS PER DAY FOR 2 WEEKS. * DERMABOND Prineo- This is a mesh tape dressing that is covered with glue. It should remain in place until the incision is properly healed, usually 10-14 days. This dressing is designed to naturally slough off. You may trim the excess mesh tape as it peels off. Incision may be briefly wet in a shower. Dry immediately by blotting with a clean, dry towel. Do not bath or swim until instructed by your doctor. Do not scratch, rub, or pick at the dressing. Do not apply any topical ointments or lotions until dressing is completely removed and/or instructed by your doctor. There may be a small piece of suture material at one end of your incision. Do not pull or trim this. If it is bothersome or catching on clothing, you may cover it with a band-aid. . FOLLOW UP VISIT: If appointment is not already scheduled: Please call [facility] to make a follow-up appointment for 2 weeks after your surgery at . Pending Studies at Discharge: No Stand-Alone Forms: My [facility], Opioid Pain Management, Smoking Cessation Medications and DC Order Prescriptions: New acetaminophen 500 mg Tablet 1,000 mg PO Q8 Qty: 60 RF: 0 celecoxib [Celebrex] 200 mg Capsule 200 mg PO BID 30 Days Qty: 60 RF: 0 aspirin 81 mg Tablet,Delayed Release (Dr/Ec) 81 mg PO BID 30 Days Qty: 60 RF: 0 docusate sodium 100 mg Capsule 100 mg PO BID 10 Days Qty: 20 RF: 0 cefadroxil 500 mg capsule 500 mg PO BID 10 Days Qty: 20 RF: 0 oxycodone 5 mg Tablet 5 - 10 mg PO Q6H PRN (Reason: pain) Qty: 30 RF: 0 Continued alprazolam 0.5 mg tablet 0.5 mg PO BID PRN (Reason: anxiety) Qty: 30 RF: 0 sertraline 50 mg tablet 50 mg PO DAILY Qty: 90 RF: 1 cyclobenzaprine 5 mg tablet 5 mg PO TID PRN (Reason: MUSCLE SPASMS) 30 Days Qty: 90 RF: 0 acyclovir 400 mg Tablet 400 mg PO UD PRN (Reason: COLD SORE ) RF: 0 calcium carbonate [Calcium 600] 600 mg calcium (1,500 mg) Tablet 600 mg PO DAILY RF: 0 multivitamin Capsule 1 cap PO DAILY RF: 0 polyethylene glycol 3350 [Miralax] 17 gram powder in packet 17 g PO DAILY PRN (Reason: constipation) Qty: 5 RF: 0 Discontinued oxycodone 5 mg tablet 5 mg PO Q4H MDD 6 PRN (Reason: pain) Qty: 40 RF: 0 diclofenac sodium [Voltaren] 1 % gel 4 g topical QID Qty: 100 RF: 2 Discharge Orders: Discharge Order (Routine); Ordered 05/13/20 Ordered By: Braden Kellogg/Other Patient Handouts: DVT Post Op Prevention, Managing Type 2 Diabetes, Managing Diabetes: The A1C Test Admission Data Admit Date/Time: 05/12/20 09:14 Attending Provider: Bruno Mesa Admit Provider: Bruno Mesa Primary Care Provider: Marcelle Archibald Other Interventions: Discharge Summary Assessment (RN) Last Done: 05/13/20 11:33
== END 2020-05-13 13:18 | disposition home or self-care (01) ==
LOC: ASU 05:20 → 3E 05:20